=== PATIENT | male | born 2000 | race Caucasian/White ===

== ENCOUNTER → 2019-09-12 16:07 | Outpatient (CLI) | payer OTHER, SELFPAY | PROVIDERS: Visit Provider Nurse Practitioner Family | DX: G47.30 Sleep apnea, unspecified (principal); G47.19 Other hypersomnia; G47.00 Insomnia, unspecified; R06.83 Snoring; R53.83 Other fatigue; E66.9 Obesity, unspecified | CPT/HCPCS: 95806 ==

== ENCOUNTER → 2019-10-30 20:15 | Outpatient (CLI) | payer OTHER, SELFPAY | PROVIDERS: PCP Nurse Practitioner Family; Visit Provider Nurse Practitioner Family | DX: G47.33 Obstructive sleep apnea (adult) (pediatric) (principal); G47.00 Insomnia, unspecified; R40.0 Somnolence; R06.83 Snoring; E66.9 Obesity, unspecified | CPT/HCPCS: 95810 ==

== ENCOUNTER 2020-05-03 13:24 | Emergency (ER) | payer OTHER, SELFPAY ==
[2020-05-03 13:39] VITALS: BP 191/99; PULSE 85; RESP 16; TEMP 37; O2SAT 99; BMI 47.5
--- NOTE | 2020-05-03 13:55 | HMH.EDUTC ---
[facility] – [place] Disposition Clinical Impression: COVID-19 virus test result unknown Disposition: Home, Self-Care Condition on Discharge: Good Instructions: Preventing the Spread of Coronavirus Discharge Instructions Additional Instructions: self quarantine until results known Referrals: Emerson Joaquin APRN [Primary Care Provider] - Time of Disposition: 14:04 Medical Decision Making - Deng Inquiry Pt receiving controlled substance: No Vital Signs: 05/03/20 13:39 Temperature 98.6 F Temperature Source Oral Pulse Rate [Radial] 85 Respiratory Rate 16 Blood Pressure [Right Arm] 191/99 H Blood Pressure Mean [Right Arm] 129 Blood Pressure Source [Right Arm] Automatic Cuff Blood Pressure Position [Right Arm] Sitting 02 Sat by Pulse Oximetry 99 Oxygen Delivery Method Room Air [facility] – [place] HPI - General Chief complaint: Urgent Treatment Center Stated complaint: wants to be tested COVID Time Seen by Provider: 05/03/20 13:55 Mode of Arrival: Ambulatory Source of Information: Patient Limitations: No Limitations Description of Symptoms (Recalled from Triage Doc. by RN): 19 yr old male presents for covid testing. pt states he has no symptoms but was exposed by sister, CAITIE Symptoms (Recalled from RN notes): No Resp Symptoms (Recalled from RN notes): No Skin Symptoms (Recalled from RN notes): No MS Symptoms (Recalled from RN notes): No Functional Status (Recalled from RN notes): wnl - Related Data Previous Rx's Medication Instructions Recorded cephALEXin [Keflex 500mg Cap] 500 mg PO TID #30 cap 12/15/19 buspirone 10 mg tablet 10 mg PO BID #60 tab 04/14/20 fluoxetine 20 mg capsule 20 mg PO DAILY #30 cap 04/14/20 Allergies Allergy/AdvReac Type Severity Reaction Status Date / Time No Known Allergies Allergy Verified 11/23/19 12:38 - Worker's Comp Is this a Worker's Comp case?: No [facility] History - Hepatitis A Screen Drug use history?: No High risk sexual behaviors?: No History of sexually transmitted infection?: No Currently employed?: No Childcare worker?: No Do you have indoor plumbing?: Yes Do you have electricity?: Yes Attestation statement:: This patient has been screened for Hepatitis A risk factors. I have reviewed the patient's past medical history: Yes Medical History: Reports:: Anxiety, Depression Denies:: Diabetes Mellitus Type 1, Diabetes Mellitus Type 2 Comment: Depression Laterality Cases: Bilateral: Tonsillectomy Other Surgeries: Yes: No Previous Surgery Amputation: No Fractures: No - Social History Smoking Status: Current every day smoker Tobacco Type: cigarettes # Packs/Day (cigarettes): 1 Alcohol Intake: never Substance Use Type: denies use Occupational Status: employed - Psychiatric History Pschychiatric History:: Reports:: Anxiety, Depression Family Hx:: No significant family history ROS Obtained: Yes Systems reviewed as appropriate & no additional complaints - Constitutional Constitutional: Reports system reviewed and no additional complaints, except as docu, Denies chills, Denies fever(s) - Eyes Eyes: Reports system reviewed and no additional complaints, except as docu, Denies dry eyes - ENT Ears, Nose, Mouth, and Throat: Reports system reviewed and no additional complaints, except as docu, Denies sore throat - Cardiovascular Cardiovascular: Reports system reviewed and no additional complaints, except as docu, Denies chest pain - Respiratory Respiratory: Yes system reviewed and no additional complaints, except as docu, No dyspnea on exertion - Gastrointestinal Gastrointestingal: Reports: system reviewed and no additional complaints, except as docu. Denies: nausea, reflux - Genitourinary Male Genitourinary: Reports system reviewed and no additional complaints, except as docu - Musculoskeletal Musculoskeletal: Reports system reviewed and no additional complaints, except as docu, Denies decreased muscle mass - Integumentary/Breasts Skin/Breast: Reports system
[2020-05-03 14:17] VITALS: BP 190/90; PULSE 85; RESP 16; TEMP 37; O2SAT 99
== END 2020-05-03 14:18 | disposition home or self-care (01) ==
PROVIDERS: Emergency Provider Nurse Practitioner Family; PCP Nurse Practitioner Family
DX: Z20.828 Contact with and (suspected) exposure to other viral communicable diseases (principal); F41.8 Other specified anxiety disorders; F17.210 Nicotine dependence, cigarettes, uncomplicated; Z90.09 Acquired absence of other part of head and neck
CPT/HCPCS: 99201; U0003

== ENCOUNTER 2020-08-11 18:41 | Emergency (ER) | payer OTHER, SELFPAY ==
[2020-08-11 18:42] VITALS: BP 123/72; PULSE 60; RESP 16; TEMP 37.2; O2SAT 98; BMI 33.0
--- NOTE | 2020-08-11 19:37 | CT_ITS ---
PROCEDURE: CT HEAD/BRAIN WO CON CLINICAL INDICATION: hit back of head on cabinet Head injury with headache/pain, contusion, abrasion or hematoma in COMPARISON: CT HDWO CT HEAD WITHOUT CONTRAST from 06/17/2011 TECHNIQUE: Axial images obtained. All CT scans at the facility use one or more dose reduction, viz: automated exposure control, ma/kV adjustment per patient size (including targeted exams where dose is matched to indication, i.e. head), or iterative reconstruction technique. FINDINGS: No midline shift, mass effect, intracranial hemorrhage, hydrocephalus, or extra-axial fluid collection is evident. The calvarium has an unremarkable appearance. No mastoid effusion. No sinus air-fluid level. IMPRESSION: No acute intracranial finding Dictated by: Alf Breen MD 08/12/2020 06:34 Alf Breen MD in [place] 08/12/2020 06:35
--- NOTE | 2020-08-11 19:37 | CT_ITS ---
PROCEDURE: CT CERVICAL SPINE WO CON CLINICAL INDICATION: hit back of head on cabinet Neck injury with pain, contusion/abrasion or hematoma, cervical sprain/strain the COMPARISON: No exams were available for comparison TECHNIQUE: Axial images obtained with sagittal and coronal reformats. All CT scans at the facility use one or more dose reduction, viz: automated exposure control, ma/kV adjustment per patient size (including targeted exams where dose is matched to indication, i.e. head), or iterative reconstruction technique. Axial spiral CT scanning performed of the cervical spine beginning at the base of the skull and continuing to the upper T-spine. 3-D multiplanar reconstruction with 3-D manipulation of volumetric data set in image rendering was completed by the radiologist and/or technologist with the supervision of the radiologist on independent workstation. FINDINGS: Reversal cervical lordosis which may be related to patient positioning or muscle spasm. No acute fracture. There is discontinuity of the styloid process on the right. Series 602, image 15 possibly due to anatomic variant. Scattered small nodes are present in the neck on both sides. Lung apices are clear. There is mild prominence of the palatine tonsils. IMPRESSION: 1. Reversal cervical lordosis which could be due to patient positioning or muscle spasm. No acute fracture. 2. Discontinuity of the styloid process on the right which may be a normal variant. Cannot exclude a fracture. Please correlate as the patient's area of pain and tenderness. Dictated by: Alf Breen MD 08/12/2020 06:40 Alf Breen MD in [place] 08/12/2020 06:40
--- NOTE | 2020-08-11 20:35 | HMH.EDHA ---
ED Disposition Clinical Impression: Concussion without loss of consciousness Qualifiers: Encounter type: initial encounter Qualified Code(s): S06.0X0A - Concussion without loss of consciousness, initial encounter Head contusion Qualifiers: Encounter type: initial encounter Contusion of head detail: unspecified part of head Qualified Code(s): S00.93XA - Contusion of unspecified part of head, initial encounter Disposition: Home, Self-Care Condition on Discharge: Good Instructions: DI for Concussion Additional Instructions: advil and tyenol and workman comp form completed Referrals: Emerson Joaquin APRN [Primary Care Provider] - - Critical Care Critical Care Time: No Attestation: On 08/11/20, the high probability of a clinically significant, sudden or life threatening deterioration of the following system(s) required my full and direct attention, intervention and personal management. The time I documented below is in addition to time spent performing reported procedures but includes the following listed in this critical care notation. Medical Decision Making - Medical Records Medical records reviewed: Yes: I reviewed the patient's medical records. - Deng Inquiry Pt receiving controlled substance: No Vital Signs: 08/11/20 18:42 Temperature 98.9 F Temperature Source Oral Pulse Rate [Radial] 60 Respiratory Rate 16 Blood Pressure [Right Radial Artery] 123/72 Blood Pressure Mean [Right Radial Artery] 89 Blood Pressure Position [Right Radial Artery] Sitting 02 Sat by Pulse Oximetry 98 Oxygen Delivery Method Room Air Orders (Tests/Meds): ORDERS Category Date Time Status CT cervical spine wo con Stat Cat Scan 08/11/20 19:[address] head/brain wo con Stat Cat Scan 08/11/20 19:37 Taken - CT Data CT Scan: Head, C-Spine Time Received: 20:[address] Reviewed: Yes: I have viewed the radiologist's interpretation Preliminary Findings: No Fracture Seen Headache HPI - General Chief Complaint: Head Injury Stated Complaint: WC 1114@2030 hit hit,dizzy Time Seen by Provider: 08/11/20 20:20 Mode of Arrival: Ambulatory Source of Information: Patient, Medical Record Limitations: No Limitations Description of Symptoms (Recalled from ER Triage Doc. by RN): TO ED PER [facility] CAR WITH C/O DIZZINESS STATES TUESDAY AT WORK HE WAS BENDING OVER STOOD UP AND HIT BACK OF HEAD ON THE EDGE OF DESK DENIES ANY LOC, NAUSEA, VOMITING - History of Present Illness MD Complaint: headache Onset (ago): day(s) Onset description: other (after trauma ) Location: diffuse Severity: moderate Quality: aching Context: recent head injury Associated symptoms: none Treatments prior to arrival: none - Related Data Previous Rx's Medication Instructions Recorded cephALEXin [Keflex 500mg Cap] 500 mg PO TID #30 cap 12/15/19 buspirone 10 mg tablet 10 mg PO BID #60 tab 07/10/20 fluoxetine 20 mg capsule 20 mg PO DAILY #30 cap 07/10/20 Allergies Allergy/AdvReac Type Severity Reaction Status Date / Time No Known Allergies Allergy Verified 11/23/19 12:38 [facility] History - Hepatitis A Screen Drug use history?: No High risk sexual behaviors?: No History of sexually transmitted infection?: No Currently employed?: No Childcare worker?: No Do you have indoor plumbing?: Yes Do you have electricity?: Yes Attestation statement:: This patient has been screened for Hepatitis A risk factors. I have reviewed the patient's past medical history: Yes Medical History: Reports:: Anxiety, Depression Denies:: Diabetes Mellitus Type 1, Diabetes Mellitus Type 2 Comment: Depression/anxiety with suicidal idealization Laterality Cases: Bilateral: Tonsillectomy Other Surgeries: Yes: No Previous Surgery Amputation: No Fractures: No - Social History Smoking Status: Never smoker Alcohol Intake: never Alcohol Intake Frequency:: 0-2 drinks per day Substance Use Type: denies use Occupational Status: employed - Psychiatric History [facility]
[2020-08-11 20:49] VITALS: BP 140/75; PULSE 76; RESP 16; TEMP 36.8; O2SAT 98
== END 2020-08-11 20:52 | disposition home or self-care (01) ==
PROVIDERS: Emergency Provider Emergency Medicine; PCP Nurse Practitioner Family
DX: S06.0X0A Concussion without loss of consciousness, initial encounter (principal); W22.03XA Walked into furniture, initial encounter; Y92.69 Other specified industrial and construction area as the place of occurrence of the external cause; Y99.0 Civilian activity done for income or pay; F41.8 Other specified anxiety disorders
CPT/HCPCS: 70450; 72125; 99282

== ENCOUNTER 2021-02-10 09:09 | Emergency (ER) | payer OTHER, SELFPAY ==
[2021-02-10 09:10] VITALS: BP 126/61; PULSE 58; RESP 17; TEMP 36.8; O2SAT 97; BMI 34.7
[2021-02-10 09:26] VITALS: BP 126/61; PULSE 58; RESP 17; TEMP 36.8; O2SAT 97
--- NOTE | 2021-02-10 09:28 | HMH.EDUTC ---
[facility] [place] Clinical Impression: Left ear impacted cerumen Disposition: Home, Self-Care Condition on Discharge: Good Instructions: DI for Cerumen Impaction, Cerumen Impaction, How to Use Ear Drops Additional Instructions: Use the drops as directed. Follow up with your regular doctor. GO TO THE ER FOR ANY WORSENING SYMPTOMS OR CONCERNS Prescriptions: Neomycin/Polymyxin B Sulf/Hc [Vsssivdx-Nllpdywcz-ZV Otic Susp 10mL] 3 drops EAR-LEFT TID 7 Days #1 bottle Transmission Status: Received by [facility] #[id number] Referrals: Emerson Joaquin APRN [Primary Care Provider] - Time of Disposition: 09:56 Medical Decision Making - Medical Records Medical records reviewed: No: I reviewed the patient's medical records. - Deng Inquiry Pt receiving controlled substance: No Vital Signs: 02/10/21 09:10 02/10/21 09:26 Temperature 98.2 F 98.2 F Temperature Source Oral Pulse Rate 58 L Pulse Rate [Left] 58 L Respiratory Rate 17 17 Blood Pressure 126/61 Blood Pressure [Right Arm] 126/61 Blood Pressure Mean [Right Arm] 82 02 Sat by Pulse Oximetry 97 [facility] [place] - General Stated complaint: left ear stopped up Time Seen by Provider: 02/10/21 09:28 Mode of Arrival: Ambulatory Source of Information: Patient Limitations: No Limitations Description of Symptoms (Recalled from Triage Doc. by RN): Pt states he is having hearing loss after using a qtip in his left ear 2 days ago. Pt states he feels like he has swelling behind his ears and chin. HEENT Symptoms (Recalled from RN notes): Yes Resp Symptoms (Recalled from RN notes): No Skin Symptoms (Recalled from RN notes): No MS Symptoms (Recalled from RN notes): No Functional Status (Recalled from RN notes): wnl - History of Present Illness Provider Complaint: He states that over the past several days he has had decreased hearing in his left ear. He has a history of getting cerumen impactions. He denies any fever, chills, or feeling bad. - Related Data Previous Rx's Medication Instructions Recorded Neomycin/Polymyxin B Sulf/Hc 3 drops EAR-LEFT TID 7 Days #1 02/10/21 [Oggtdcst-Clzqlujqf-LT Otic Susp bottle 10mL] buspirone 10 mg tablet 10 mg PO BID #60 tab 02/10/21 venlafaxine 75 mg capsule,extended 75 mg PO DAILY #30 cap 02/10/21 release 24 hr Allergies Allergy/AdvReac Type Severity Reaction Status Date / Time No Known Allergies Allergy Verified 02/10/21 09:25 - Worker's Comp Is this a Worker's Comp case?: No [facility] History - Hepatitis A Screen Drug use history?: No High risk sexual behaviors?: No History of sexually transmitted infection?: No Currently employed?: No Childcare worker?: No Do you have indoor plumbing?: Yes Do you have electricity?: Yes Attestation statement:: This patient has been screened for Hepatitis A risk factors. I have reviewed the patient's past medical history: Yes Medical History: Reports:: Anxiety, Depression Denies:: Diabetes Mellitus Type 1, Diabetes Mellitus Type 2 Comment: Depression/anxiety with suicidal idealization Laterality Cases: Bilateral: Tonsillectomy Other Surgeries: Yes: No Previous Surgery Amputation: No Fractures: No - Social History Smoking Status: Never smoker Alcohol Intake: never Alcohol Intake Frequency:: 0-2 drinks per day Substance Use Type: denies use Occupational Status: other - Psychiatric History Pschychiatric History:: Reports:: Anxiety, Depression Family Hx:: No significant family history ROS Obtained: Yes All systems reviewed & no additional complaints - Constitutional Constitutional: Denies chills, Denies fever(s) - ENT Ears, Nose, Mouth, and Throat: Reports otalgia - Cardiovascular Cardiovascular: Denies chest pain - Respiratory Respiratory: Denies chest congestion, Denies cough Physical Exam - General General appearance: alert, in no apparent distress - Head Head exam: atraumatic, normocephalic, normal inspection - Eye Eye exam: Pr
== END 2021-02-10 10:01 | disposition home or self-care (01) ==
PROVIDERS: Emergency Provider Nurse Practitioner Family; PCP Nurse Practitioner Family
DX: H61.22 Impacted cerumen, left ear (principal); F41.8 Other specified anxiety disorders
CPT/HCPCS: 99202; G0463

== ENCOUNTER → 2021-02-20 13:31 | Outpatient (CLI) | payer OTHER, SELFPAY ==
[2021-02-20 13:51] LABS: Basophils % 0.3 % (0.1-2.0); Eosinophils # 0.1 K/mm3 (0.0-0.4); Eosinophils % 2.4 % (0.1-12.0); Hemoglobin 14.4 g/dL (14.1-18.0); Lymphocytes # 2.1 K/mm3 (0.7-4.5); Lymphocytes % 37.6 % (10-50); Mean Corpuscular HGB Conc 32.8 g/dL (31.8-35.4); Mean Corpuscular Hemoglobin 28.5 pg (27.0-31.2); Mean Corpuscular Volume 86.9 fl (80-94); Mean Platelet Volume 7.4 fl (7.4-10.4); Monocytes # 0.4 K/mm3 (0.1-1.0); Monocytes % 7.1 % (1.7-9.3); Neutrophils # 2.9 K/mm3 (1.8-7.8); Neutrophils % 52.6 % (37.0-80.0); Platelet Count 227 K/mm3 (142-424); Red Blood Count 5.07 M/mm3 (4.60-6.20); Red Cell Distribution Width 12.6 % (11.5-17.5); White Blood Count 5.6 K/mm3 (4.8-10.8)
[2021-02-20 14:33] LABS: Chloride 104 mmol/L (98-107); Potassium 4.7 mmoL/L (3.5-5.1); Sodium 142 mmol/L (136-145)
[2021-02-20 14:36] LABS: Alanine Aminotransferase 26 U/L (12-78); Albumin Level 4.7 g/dl (3.5-5.0); Albumin/Globulin Ratio 1.7 (1.1-1.8); Alkaline Phosphatase 61 U/L (38-126); Anion Gap 12.7 mEq/L (5-15); Aspartate Amino Transferase 27 U/L (17-59); Bilirubin,Total 1.1 mg/dl (0.2-1.3); Blood Urea Nitrogen 12 mg/dl (9-20); Calcium 9.2 mg/dl (8.4-10.2); Carbon Dioxide 30 mmol/L (22.0-30.0); Estimated Glomerular Filt Rate 94 ml/min (>60); GFR (African American) 114 ML/MIN (>60); Globulin 2.7 g/dL (1.3-3.2); Glucose 85 mg/dl (74-100); Total Protein,Serum 7.4 g/dl (6.3-8.2)
[2021-02-20 14:49] LABS: Intact Parathyroid Hormone 31.3 pg/mL (7.5-53.5)
[2021-02-20 14:53] LABS: T4 (Thyroxine) 11.2 ug/dl (5.53-11.0)
[2021-02-20 15:07] LABS: Thyroid Stimulating Hormone 1.42 uIU/mL (0.465-4.68)
[2021-02-22 09:54] LABS: Prolactin 11.8 ng/mL (4.0-15.2)
[2021-02-24 16:11] LABS: Calcium, Ionized 5.3 mg/dL (4.5-5.6)
== END ==
PROVIDERS: Visit Provider Nurse Practitioner Family
DX: S21.0 Open wound of breast (principal); N64.52 Nipple discharge; H93.90 Unspecified disorder of ear, unspecified ear; Z79.899 Other long term (current) drug therapy
CPT/HCPCS: 80053; 82330; 83970; 84146; 84436; 84443; 85025

== ENCOUNTER → 2021-03-30 11:14 | Outpatient (CLI) | payer OTHER, SELFPAY ==
--- NOTE | 2021-03-30 11:20 | MR_ITS ---
PROCEDURE: MR HEAD/BRAIN WO CON CLINICAL INDICATION: Chronic nipple discharge COMPARISON: No exams were available for comparison TECHNIQUE: Routine multiplanar multi echo sequences are performed without gadolinium enhancement. FINDINGS: No midline shift, mass effect, intracranial hemorrhage, or hydrocephalus is evident. The cerebellopontine angles, cerebellum, brainstem, and mid brain have an unremarkable appearance. There is a tiny T2 white matter hyperintensity in the left parietal lobe nonspecific measuring approximately 2 mm. The optic chiasm, corpus callosum, and craniocervical junction are unremarkable. The pituitary stalk is slightly deviated toward the left. There is a subtle area of decreased T2 signal in the left aspect of the pituitary as seen on series 8, image 12. This area measures approximately 3-4 mm and may be due to artifact. Dedicated pituitary exam without and with gadolinium enhancement suggested for further evaluation. There are small bilateral maxillary sinus retention cyst. Increased T2 signal noted within the mastoid sinus on the left. IMPRESSION: 1. No acute intracranial findings. 2. Possible small left-sided pituitary lesion. MRI of the pituitary without and with gadolinium enhancement may confirm. 3. Left mastoid sinus disease Dictated by: Alf Breen MD 03/31/2021 09:22 Alf Breen MD in [place] 03/31/2021 09:22
== END ==
PROVIDERS: PCP Nurse Practitioner Family; Visit Provider Nurse Practitioner Family
DX: N64.52 Nipple discharge (principal)
CPT/HCPCS: 70551

== ENCOUNTER → 2021-04-10 13:44 | Outpatient (CLI) | payer OTHER, SELFPAY ==
--- NOTE | 2021-04-10 13:48 | US_ITS ---
PROCEDURE: MM DIG MAMM BI DX W/CAD Digital Breast Tomosynthesis Included CLINICAL INDICATION: nipple discharge COMPARISON: US US BREAST LT COMPLETE from 04/10/2021 US US BREAST RT COMPLETE from 04/10/2021 TECHNIQUE: Standard CC and MLO images and 3D Tomosynthesis was obtained. R2 CAD reviewed. FINDINGS: Increased density is present in the retroareolar region bilaterally consistent with gynecomastia. There is a small nodular lesion along the tip of the left nipple measuring approximately 2 mm. Please correlate with direct visualization and physical exam. No abnormal calcification in this region. No nipple retraction. Benign-appearing right breast calcification. Right breast ultrasound: No cyst or mass evident. Increased retroareolar glandular tissue consistent with gynecomastia Left breast ultrasound: No cyst or mass evident. Increased retroareolar glandular tissue consistent with gynecomastia IMPRESSION: No mammographic evidence of malignancy. There is bilateral gynecomastia. There is suggestion of a small nodule at the tip of the nipple on the left. Please correlate with clinical findings. BI-RAD Category: 2 Benign Finding FOLLOW-UP: Please correlate with physical exam regarding possible nodule on the left nipple (A letter has been sent to the patient regarding results of the study.) Dictated by: Alf Breen MD 04/11/2021 10:38 Alf Breen MD in [place] 04/11/2021 10:38
== END ==
PROVIDERS: PCP Nurse Practitioner Family; Visit Provider Nurse Practitioner Family
DX: N64.52 Nipple discharge (principal); N63.0 Unspecified lump in unspecified breast
CPT/HCPCS: 76641; 77062; 77066; G0279

== ENCOUNTER → 2021-05-11 08:50 | Outpatient (CLI) | payer OTHER, SELFPAY ==
--- NOTE | 2021-05-11 08:50 | MR_ITS ---
PROCEDURE: MR HEAD/BRAIN WO/W CON CLINICAL INDICATION: Abnormal finding on pituitary gland Possible pituitary adenoma. COMPARISON: CT CT HEAD/BRAIN WO CON from 08/11/2020 MR MR HEAD/BRAIN WO CON from 03/30/2021 TECHNIQUE: Routine multiplanar multi echo sequences are performed without and with gadolinium enhancement. Thin-section pre and dynamic post enhanced images obtained of the pituitary. FINDINGS: No midline shift, mass effect, intracranial hemorrhage, or hydrocephalus. No restricted diffusion. The cerebellopontine angles, cerebellum, and brainstem have an unremarkable appearance. The small T2 hyperintensity is present in the left parietal lobe nonspecific measuring 3 mm unchanged. No enhancing lesions are evident. Thin-section coronal pre and post enhanced images are obtained of the pituitary fossa. No pituitary lesion is identified. There is homogeneous enhancement. The pituitary stalk is slightly deviated toward the left inferiorly but no lesion is identified in the pituitary. There are small bilateral maxillary retention cysts. IMPRESSION: No evidence of pituitary lesion. Previously noted abnormality in the pituitary is felt to been due to an artifact. There is homogeneous pituitary enhancement. The stalk is slightly deviated toward the left inferiorly but is felt to be due to an incidental finding and not due to a space-occupying pituitary lesion. Dictated by: Alf Breen MD 05/12/2021 05:49 Alf Breen MD in [place] 05/12/2021 05:49
== END ==
PROVIDERS: PCP Nurse Practitioner Family; Visit Provider Specialist
DX: N64.3 Galactorrhea not associated with childbirth (principal); R90.89 Other abnormal findings on diagnostic imaging of central nervous system
CPT/HCPCS: 70553; A9576

== ENCOUNTER 2021-10-17 10:51 | Emergency (ER) | payer OTHER, SELFPAY ==
--- NOTE | 2021-10-17 12:33 | HMH.EDUTC ---
[facility] – [place] Disposition Clinical Impression: Abdominal bloating Disposition: Still a Patient Condition on Discharge: Good Referrals: Emerson Joaquin APRN [Primary Care Provider] - Time of Disposition: 12:37 Medical Decision Making - Degn Inquiry Pt receiving controlled substance: No Orders (Tests/Meds): ORDERS Category Date Time Status XR KUB Stat Exams 10/17/21 12:14 Stop Req [facility] [place] HPI - General Chief complaint: Urgent Treatment Center Stated complaint: bloating, painful burps Time Seen by Provider: 10/17/21 12:33 Mode of Arrival: Ambulatory Source of Information: Patient Limitations: No Limitations - History of Present Illness Provider Complaint: 21 yr old male presents for abd bloating, burping constant, no bm for 5 days, stool prior was dark and had blood in it. pt states he has taken pepto and gas x but the gas x made it worse. pt denies fever. - Related Data Previous Rx's Medication Instructions Recorded venlafaxine 75 mg capsule,extended 75 mg PO DAILY #30 cap 08/10/21 release 24 hr Allergies Allergy/AdvReac Type Severity Reaction Status Date / Time No Known Allergies Allergy Verified 08/10/21 09:51 [facility] History - Hepatitis A Screen Attestation statement:: This patient has been screened for Hepatitis A risk factors. I have reviewed the patient's past medical history: Yes Medical History: Reports:: Anxiety, Depression Denies:: Diabetes Mellitus Type 1, Diabetes Mellitus Type 2 Comment: Depression/anxiety with suicidal idealization Laterality Cases: Bilateral: Tonsillectomy Other Surgeries: Yes: No Previous Surgery, Other Amputation: No Fractures: No - Social History Smoking Status: Never smoker Alcohol Intake: never Alcohol Intake Frequency:: other Substance Use Type: denies use Occupational Status: employed Housing: house Household Members: family - Psychiatric History Pschychiatric History:: Reports:: Anxiety, Depression Family Hx:: Diabetes, Stroke ROS Obtained: Yes Systems reviewed as appropriate & no additional complaints - Constitutional Constitutional: Reports system reviewed and no additional complaints, except as docu, Denies chills, Denies fatigue, Reports poor appetite - Eyes Eyes: Reports system reviewed and no additional complaints, except as docu, Denies blurry vision - ENT Ears, Nose, Mouth, and Throat: Reports system reviewed and no additional complaints, except as docu, Denies sore throat - Cardiovascular Cardiovascular: Reports system reviewed and no additional complaints, except as docu, Denies chest pain - Respiratory Respiratory: Reports system reviewed and no additional complaints, except as docu, Denies cough - Gastrointestinal Gastrointestingal: Reports: system reviewed and no additional complaints, except as docu, abdominal pain, belching, bloating, change in bowel habits - Genitourinary Female Genitourinary: Reports system reviewed and no additional complaints, except as docu - Musculoskeletal Musculoskeletal: Reports system reviewed and no additional complaints, except as docu, Denies joint pain - Integumentary/Breasts Skin/Breast: Reports system reviewed and no additional complaints, except as docu, Denies rash - Neurologic Neurologic: Reports system reviewed and no additional complaints, except as docu, Denies dizziness - Endocrine Endocrine: Reports system reviewed and no additional complaints, except as docu, Denies fatigue - Hematologic/Lymphatic Henatologic/Lymphatic: Reports system reviewed and no additional complaints, except as docu, Denies lymphadenopathy - Allergic/Immunologic Allergic/Immunologic: Reports system reviewed and no additional complaints, except as docu, Denies itchy eyes Physical Exam - General General appearance: alert, in no apparent distress - Head Head exam: atraumatic, normocephalic, normal inspection - Eye Eye exam: Present: normal appearance, PERRL - ENT ENT exam: Present:
[2021-10-17 12:49] VITALS: BP 113/76; PULSE 81; RESP 18; TEMP 37; O2SAT 100; BMI 34.4
--- NOTE | 2021-10-17 12:54 | HMH.ITSTN ---
cancelled by ut
[2021-10-17 12:56] VITALS: BP 127/45; PULSE 75; O2SAT 98
[2021-10-17 13:00] VITALS: BP 122/53; PULSE 70; RESP 18; O2SAT 99; BMI 34.3
--- NOTE | 2021-10-17 13:32 | CT_ITS ---
PROCEDURE INFORMATION: Exam: CT Abdomen And Pelvis With Contrast Exam date and time: 10/17/2021 1:32 PM Age: 21 years old Clinical indication: Bloating and constipation; Additional info: Abd pain, no bm in 5 days TECHNIQUE: Imaging protocol: Computed tomography of the abdomen and pelvis with contrast. Radiation optimization: All CT scans at this facility use at least one of these dose optimization techniques: automated exposure control; mA and/or kV adjustment per patient size (includes targeted exams where dose is matched to clinical indication); or iterative reconstruction. Contrast material: ISOVUE; Contrast volume: 75 ml; Contrast route: IV; COMPARISON: No relevant prior studies available. FINDINGS: Pleural spaces: No acute airspace or pleural disease. Liver: Fatty infiltration of the liver. Gallbladder and bile ducts: Unremarkable gallbladder. Pancreas: No pancreatic mass or ductal dilatation. Spleen: Enlarged spleen measuring 12.9 cm in length. Adrenal glands: Unremarkable adrenals. Kidneys and ureters: Normal renal morphology. No hydronephrosis. Stomach and bowel: Mild small bowel dilatation without a transition zone. Mild wall thickening in the nondistended rectum. Prominent stool, consistent with the reported history of constipation. Diverticula, without pericolonic inflammation. Appendix: No acute appendicitis. Intraperitoneal space: No significant free fluid. Vasculature: Normal caliber of the abdominal aorta. Lymph nodes: Subcentimeter lymph nodes. Urinary bladder: Normal bladder morphology. Reproductive: Unremarkable as visualized. Bones/joints: Transitional vertebra at the lumbosacral junction. Schmorl's nodes. Soft tissues: Small fat containing left inguinal hernia. Infiltration of subcutaneous fat about the umbilicus. IMPRESSION: 1. Prominent stool, consistent with the reported history of constipation. 2. Additional findings as described above.
--- NOTE | 2021-10-17 13:33 | HMH.EDGENADL ---
ED Disposition Clinical Impression: Abdominal bloating, Constipation, Left inguinal hernia Disposition: Home, Self-Care Condition on Discharge: Good Referrals: Emerson Joaquin APRN [Primary Care Provider] - - Critical Care Critical Care Time: No Attestation: On 10/17/21, the high probability of a clinically significant, sudden or life threatening deterioration of the following system(s) required my full and direct attention, intervention and personal management. The time I documented below is in addition to time spent performing reported procedures but includes the following listed in this critical care notation. Medical Decision Making - Deng Inquiry Pt receiving controlled substance: No Vital Signs: 10/17/21 12:49 10/17/21 12:56 10/17/21 13:00 Temperature 98.6 F Temperature Source Oral Pulse Rate [Left] 81 75 70 Respiratory Rate 18 18 Blood Pressure [Right Arm] 113/76 127/45 L 122/53 L Blood Pressure Mean [Right Arm] 88 72 76 02 Sat by Pulse Oximetry 100 98 99 Oxygen Delivery Method Room Air Room Air - Lab Data Lab Results 10/17/21 13:40: WBC 7.2, RBC 5.17, Hgb 15.1, Hct 46.6, MCV 90.1, MCH 29.2, MCHC 32.5, RDW 13.5, Plt Count 260, MPV 6.9 L, Neut % (Auto) 60.9, Lymph % (Auto) 27.2, Powell % (Auto) 5.1, Eos % (Auto) 5.7, Baso % (Auto) 1.1, Neut # (Auto) 4.4, Lymph # (Auto) 2.0, Powell # (Auto) 0.4, Eos # (Auto) 0.4, Baso # (Auto) 0.1 10/17/21 13:40: Sodium 138, Potassium 4.7, Chloride 102, Carbon Dioxide 31 H, Anion Gap 9.7, BUN 10, Creatinine 0.80, Estimated Creat Clear 223, Estimated GFR 121, Est GFR ( Amer) 146, Glucose 86, Calcium 9.0, Total Bilirubin 1.3, AST 46, ALT 46, Alkaline Phosphatase 53, Total Protein 7.5, Albumin 4.6, Globulin 2.9, Albumin/Globulin Ratio 1.6, Lipase 253 Result diagrams: 10/17/21 13:40 10/17/21 13:40 Orders (Tests/Meds): ED MEDICATIONS Discontinued Medications Generic Name Dose Route Start Last Admin Trade Name Diann PRN Reason Stop Dose Admin Iopamidol 75 ml 10/17/21 14:21 10/17/21 14:22 Iopamidol-370 (76%);100ml Bottle IV 10/17/21 14:22 75 ml ONCE ONE Administration Ondansetron HCl 4 mg 10/17/21 13:32 10/17/21 13:49 Ondansetron 4mg/2ml Vial IV 10/17/21 13:33 4 mg ONCE ONE Administration Simethicone 80 mg 10/17/21 13:32 10/17/21 13:49 Simethicone 80mg Chewable Tablet PO 10/17/21 13:33 80 mg ONCE ONE Administration Sodium Chloride 10 ml 10/17/21 14:21 10/17/21 14:22 Sodium Chloride 0.9% 10ml Syr (Rad Only) IV 10/17/21 14:22 10 ml ONCE ONE Administration ORDERS Category Date Time Status Lactic Acid Stat Lab 10/17/21 13:32 Ordered Medical Decision Narrative: DDx includes but not limited to constipation, SBO, LBO, ileus, electrolyte abnormality, medication/supplement side effect. HDS, NAD, nonperitonitic abd, with generalized mild ttp worse in RLQ. Labs including cbc, cmp without acute and actionable findings. CT A/P w/ contrast shows small diverticula without diverticulitis, no significant obstruction, prominent stool burden, small left inguinal hernia. Remains HDS, well appearing, NAD. Pain minimal on reassessment. He wants to get otc laxatives and supplemental fiber on his own, does not want prescription. This seems reasonable. Given ED return precautions. General Adult HPI - General Chief complaint: [facility] Stated complaint: bloating, painful burps Time Seen by Provider: 10/17/21 12:33 Mode of Arrival: Ambulatory Source of Information: Patient Limitations: No Limitations Description of Symptoms (Recalled from ER Triage Doc. by RN): pt c/o intesetinal issures, blockage, constant belching, dark bloody stool and no BM for 5 days. - History of Present Illness HPI narrative: 21 yo male presents for evaluation of constipation. Patient reports he has not had BM in 5 days. Last BM had dark red blood in it. States he was taking MV with iron in it which has caused bloody BM in pas
[2021-10-17 13:53] LABS: Chloride 102 mmol/L (98-107); Potassium 4.7 mmoL/L (3.5-5.1); Sodium 138 mmol/L (136-145)
[2021-10-17 13:55] LABS: Alanine Aminotransferase 46 U/L (12-78); Aspartate Amino Transferase 46 U/L (17-59); Blood Urea Nitrogen 10 mg/dl (9-20); Creatinine Clearance Estimated 223 mL/min (50-200); Estimated Glomerular Filt Rate 121 ml/min (>60); GFR (African American) 146 ML/MIN (>60)
[2021-10-17 13:56] LABS: Albumin Level 4.6 g/dl (3.5-5.0); Albumin/Globulin Ratio 1.6 (1.1-1.8); Alkaline Phosphatase 53 U/L (38-126); Anion Gap 9.7 mEq/L (5-15); Bilirubin,Total 1.3 mg/dl (0.2-1.3); Carbon Dioxide 31 mmol/L (22.0-30.0); Globulin 2.9 g/dL (1.3-3.2); Glucose 86 mg/dl (74-100); Lipase 253 U/L (23-300); Total Protein,Serum 7.5 g/dl (6.3-8.2)
[2021-10-17 13:59] LABS: Basophils # 0.1 K/mm3 (0-0.2); Basophils % 1.1 % (0.1-2.0); Eosinophils # 0.4 K/mm3 (0.0-0.4); Eosinophils % 5.7 % (0.1-12.0); Hematocrit 46.6 % (42.0-52.0); Hemoglobin 15.1 g/dL (14.1-18.0); Lymphocytes % 27.2 % (10-50); Mean Corpuscular HGB Conc 32.5 g/dL (31.8-35.4); Mean Corpuscular Hemoglobin 29.2 pg (27.0-31.2); Mean Corpuscular Volume 90.1 fl (80-94); Mean Platelet Volume 6.9 fl (7.4-10.4); Monocytes # 0.4 K/mm3 (0.1-1.0); Monocytes % 5.1 % (1.7-9.3); Neutrophils # 4.4 K/mm3 (1.8-7.8); Neutrophils % 60.9 % (37.0-80.0); Platelet Count 260 K/mm3 (142-424); Red Blood Count 5.17 M/mm3 (4.60-6.20); Red Cell Distribution Width 13.5 % (11.5-17.5); White Blood Count 7.2 K/mm3 (4.8-10.8)
--- NOTE | 2021-10-17 14:07 | PC.NURSE ---
Pt to radiology
--- NOTE | 2021-10-17 14:15 | PC.NURSE ---
pt returned from CT
[2021-10-17 15:21] VITALS: BP 134/54; PULSE 80; RESP 16; TEMP 36.9; O2SAT 98
[2021-10-17 15:26] VITALS: BP 113/64
== END 2021-10-17 15:26 | disposition home or self-care (01) ==
LOC: UTC 12:38 → ER 12:51
PROVIDERS: Emergency Provider Student in an Organized Health Care Education/Training Program; PCP Nurse Practitioner Family
DX: K59.00 Constipation, unspecified (principal); K40.90 Unilateral inguinal hernia, without obstruction or gangrene, not specified as recurrent; F41.8 Other specified anxiety disorders
CPT/HCPCS: 74177; 80053; 83690; 85025; 96374; 99283; J2405; Q9967

== ENCOUNTER → 2021-10-19 12:06 | Outpatient (CLI) | payer OTHER, SELFPAY | PROVIDERS: Visit Provider Nurse Practitioner | DX: Z20.822 Contact with and (suspected) exposure to COVID-19 (principal) | CPT/HCPCS: C9803; U0003; U0005 ==

== ENCOUNTER 2022-03-15 15:01 | Emergency (ER) | payer OTHER, SELFPAY ==
[2022-03-15 16:30] VITALS: BP 132/74; PULSE 71; RESP 19; TEMP 37.3; O2SAT 97; BMI 34.4
--- NOTE | 2022-03-15 16:43 | HMH.EDUTC ---
[facility] [place] Clinical Impression: Otitis media Qualifiers: Otitis media type: unspecified Laterality: bilateral Qualified Code(s): H66.93 - Otitis media, unspecified, bilateral Otitis externa Qualifiers: Otitis externa type: unspecified type Chronicity: unspecified Laterality: left Qualified Code(s): H60.92 - Unspecified otitis externa, left ear Disposition: Home, Self-Care Condition on Discharge: Good Instructions: Middle Ear Infection, DI for Otitis Externa Additional Instructions: Take medication and use drops in left ear as advised Return if needed Straight to ER if any life threatening symptoms FOllow up with your Family Doctor if symptoms persist Prescriptions: Amoxicillin [Amoxicillin 875MG Tab] 875 mg PO Q12H #20 tab Transmission Status: Pending to Headroom # Neomycin/Polymyxin B Sulf/Hc [Fuuilijg-Jdfinmrff-OD Otic Susp 10mL] 4 drp OT Q8H 7 Days #10 ml Transmission Status: Pending to Headroom # Referrals: Emerson Joaquin APRN [Primary Care Provider] - As needed Time of Disposition: 16:48 Medical Decision Making - Deng Inquiry Pt receiving controlled substance: No Deng was queried for this patient: No Vital Signs: 03/15/22 16:30 Temperature 99.2 F Temperature Source Oral Pulse Rate [Right Brachial] 71 Respiratory Rate 19 Blood Pressure [Right Arm] 132/74 Blood Pressure Mean [Right Arm] 93 Blood Pressure Source [Right Arm] Automatic Cuff Blood Pressure Position [Right Arm] Sitting 02 Sat by Pulse Oximetry 97 Oxygen Delivery Method Room Air [facility] - General Stated complaint: left ear pain Time Seen by Provider: 03/15/22 16:43 Mode of Arrival: Ambulatory Source of Information: Patient Limitations: No Limitations Description of Symptoms (Recalled from Triage Doc. by RN): PATIENT C/O BILATERAL EAR PAIN AND PRESSURE X 1 MONTH HEENT Symptoms (Recalled from RN notes): Yes Resp Symptoms (Recalled from RN notes): No Skin Symptoms (Recalled from RN notes): No MS Symptoms (Recalled from RN notes): No Functional Status (Recalled from RN notes): WNL - History of Present Illness Provider Complaint: Patient states that he has been having pain in his left ear and now having pain in his right States that he feels like his left ear is swollen and hurts at times when he uses his headphones - Related Data Home Medications Medication Instructions Recorded Confirmed buPROPion HCL [Wellbutrin XL] 150 mg PO DAILY 03/15/22 03/15/22 Previous Rx's Medication Instructions Recorded Amoxicillin [Amoxicillin 875MG 875 mg PO Q12H #20 tab 03/15/22 Tab] Neomycin/Polymyxin B Sulf/Hc 4 drp OT Q8H 7 Days #10 ml 03/15/22 [Vxwunllr-Wljahxjud-FE Otic Susp 10mL] Allergies Allergy/AdvReac Type Severity Reaction Status Date / Time No Known Allergies Allergy Verified 12/23/21 10:00 - Worker's Comp Is this a Worker's Comp case?: No [facility] History - Hepatitis A Screen Attestation statement:: This patient has been screened for Hepatitis A risk factors. I have reviewed the patient's past medical history: Yes Medical History: Reports:: Anxiety, Depression Denies:: Diabetes Mellitus Type 1, Diabetes Mellitus Type 2 Comment: Depression/anxiety with suicidal idealization Laterality Cases: Bilateral: Tonsillectomy Other Surgeries: Yes: No Previous Surgery, Other Amputation: No Fractures: No - Social History Smoking Status: Never smoker Alcohol Intake: never Alcohol Intake Frequency:: other Substance Use Type: denies use Occupational Status: employed Housing: house Household Members: family - Psychiatric History Pschychiatric History:: Reports:: Anxiety, Depression Family Hx:: Diabetes, Stroke ROS Obtained: Yes All systems reviewed & no additional complaints, Yes Systems reviewed as appropriate & no additional complaints - Constitutional Constitutional: Reports system reviewed and no additional complaints, except as docu, Denies body ac
[2022-03-15 16:48] VITALS: BP 132/74; PULSE 71; RESP 19; TEMP 37.3; O2SAT 97
== END 2022-03-15 16:51 | disposition home or self-care (01) ==
PROVIDERS: Emergency Provider Nurse Practitioner; PCP Nurse Practitioner Family
DX: H66.93 Otitis media, unspecified, bilateral (principal); H60.92 Unspecified otitis externa, left ear; F32.A Depression, unspecified; F41.9 Anxiety disorder, unspecified; Z80.9 Family history of malignant neoplasm, unspecified; Z83.3 Family history of diabetes mellitus
CPT/HCPCS: 99213; G0463

== ENCOUNTER 2023-01-28 16:54 | Emergency (ER) | payer OTHER, SELFPAY ==
[2023-01-28 17:00] VITALS: BP 114/59; PULSE 55; RESP 22; TEMP 36.8; O2SAT 98; BMI 32.4
--- NOTE | 2023-01-28 17:09 | EXP.UTC ---
Discharge Plan Disposition Patient Disposition: Home, Self-Care Condition: Good Prescriptions Prescriptions: New cyclobenzaprine 10 mg Tablet 10 mg PO BID PRN (Reason: Muscle Spasm) Qty: 20 0RF methylprednisolone 4 mg Tablets,Dose Pack 4 mg PO DIRECTED Qty: 21 0RF No Action chacjjbe-cphzgneku-SO 3.5-10,000-1 mg/mL-unit/mL-% drops,suspension 4 drp OT Q8H 7 Days Qty: 10 5RF Rx Instructions: 4 drops in left ear every 8 hours for 7 days bupropion HCl 75 mg tablet 75 mg PO BID Qty: 60 1RF Rx Instructions: in the am and at bedtime Referrals Follow up/Referrals: Provider,Referral, MD [Primary Care Provider] - See instructions Activity Restrictions/Add. Instructions Additional Instructions/Restrictions: Go home and rest. It would be best if you rested tomorrow too. No heavy lifting. No twisting for the next couple of days. Take the oral medications as directed. The muscle relaxer (cyclobenzaprine--Flexeril) will make you drowsy, so don't drive or operate heavy machinery after taking it. Follow up with your regular doctor. You may need a referral to physical therapy. Your primary care physician would have to see you and order it though. GO TO THE ER FOR ANY WORSENING SYMPTOMS OR CONCERN, ESPECIALLY BOWEL OR BLADDER ISSUES, SADDLE AREA NUMBNESS, FEVER, ETC Clinical Impressions Clinical Impression: Low back pain, Low back strain Stand Alone Forms Stand Alone Forms: Work/School Release Instructions Patient Instructions: Low Back Pain (Alternative Therapy), Low Back Pain, DI for Low Back Pain, Cyclobenzaprine, Methylprednisolone Discharge ED Provider: Kale Hernandez [facility] General Stated complaint: back pain Time Seen by Provider: 01/28/23 17:09 History of Present Illness Provider Complaint: He states that for the past several days he has had low back pain that radiates up to his middle back at times. He denies any falls or known injuries. He does state that he has switched jobs and he is lifting heavy things at this job now. He has been trying various stretching exercises and he does not believe they have helped. Related Data Previous Rx's Medication Instructions Recorded bupropion HCl 75 mg tablet 75 mg PO BID #60 tabs 05/19/22 phgzlvbf-oezcoqbfy-vpufinvgw 3.5 4 drp otic (ear) Q8H 7 days #10 mL 06/04/22 mg-10,000 unit/mL-1 % ear drops,susp cyclobenzaprine 10 mg tablet 10 mg PO BID PRN Muscle Spasm #20 01/28/23 tabs methylprednisolone 4 mg tablets in 4 mg PO DIRECTED #21 tabs 01/28/23 a dose pack Allergies Allergy/AdvReac Type Severity Reaction Status Date / Time No Known Allergies Allergy Verified 06/04/22 14:19 [facility] Disclaimer: The information contained in this section may have been updated after the patient was seen, as this information can be updated by other users. Social History Smoking Status: Never smoker alcohol intake: never substance use type: denies use current occupational status: employed Travel in the last 8 weeks: None household members: family housing: house number of children: 0 ROS Obtained: Yes All systems reviewed & no additional complaints except as documented Constitutional Constitutional: Denies chills and Denies fever(s) Eyes Eyes: Denies eye discharge ENT Ears, Nose, Mouth, and Throat: Denies dizziness, Denies otalgia and Denies sore throat Cardiovascular Cardiovascular: Denies chest pain Respiratory Respiratory: Denies shortness of breath, Denies chest congestion, Denies cough, Denies stridor and Denies wheezing Gastrointestinal Gastrointestingal: Denies nausea or vomiting Musculoskeletal Musculoskeletal: Reports system reviewed and no additional complaints, except as documented and Denies arthralgias Integumentary/Breasts Skin/Breast: Denies rash Neurologic Neurologic: Denies dizziness and Denies paresthesias Allergic/Immunol
[2023-01-28 17:48] VITALS: BP 114/59; PULSE 55; RESP 22; TEMP 36.8; O2SAT 98
== END 2023-01-28 17:51 | disposition home or self-care (01) ==
PROVIDERS: Emergency Provider Nurse Practitioner Family
DX: M54.50 Low back pain, unspecified
CPT/HCPCS: 99212; 99214; G0463

== ENCOUNTER 2023-06-20 16:07 | Emergency (ER) | payer OTHER, SELFPAY ==
[2023-06-20 16:40] VITALS: BP 116/70; PULSE 87; RESP 18; TEMP 37.2; O2SAT 98; BMI 29.0
[2023-06-20 17:07] LABS: UTC Strep Screen (Rapid) Negative (Negative)
--- NOTE | 2023-06-20 17:18 | EXP.UTC ---
Discharge Plan Disposition Patient Disposition: Home, Self-Care Condition: Good Prescriptions Prescriptions: New amoxicillin 875 mg tablet 875 mg PO BID Qty: 20 0RF Referrals Follow up/Referrals: Adeel Pinon APRN [Primary Care Provider] - See instructions Activity Restrictions/Add. Instructions Additional Instructions/Restrictions: *Monitor Temp, Over the counter Motrin or Tylenol as directed/as needed Tylenol every 4 hours and Motrin every 6 hours (as long as your family doctor has told you that you can take it) for fever or pain. and straight to ER if unable to lower temp less than 101.0 after medication given *Warm salt water gargles may help to soothe the throat *Throat Lozenges? *Warm fluids like tea with honey may help to soothe the throat? *Sleep elevated *Humidifier/Vaporizer *Your throat swab was sent for culture. Those results are typically sent to your primary care. Be sure to follow up in 2-3 days with your family doctor/primary care physician if no improvement so they can review those result and treat if necessary. If you don?t have a primary care doctor, I recommend you get one but in the mean time, you will have to return to a walk in clinic Follow up IMMEDIATELY for new or worsening symptoms or no Noticeable improvement over the next 48-72 hours. 911 for difficulty breathing or swallowing Clinical Impressions Clinical Impression: Pharyngitis Qualifiers: Pharyngitis/tonsillitis etiology: unspecified etiology Qualified Code(s): J02.9 - Acute pharyngitis, unspecified Instructions Patient Instructions: Sore Throat, Middle Ear Infection Discharge ED Provider: Bette Carr [facility] General Stated complaint: sore throat Mode of Arrival: Ambulatory Source of Information: Patient Limitations: No Limitations Time Seen by Provider: 06/20/23 17:18 Description of Symptoms (Recalled from Triage Doc. by RN): PATIENT C/O SORE THROAT X 1 WEEK HEENT Symptoms (Recalled from RN notes): Yes Resp Symptoms (Recalled from RN notes): No Skin Symptoms (Recalled from RN notes): No MS Symptoms (Recalled from RN notes): No Functional Status (Recalled from RN notes): WNL History of Present Illness Provider Complaint: Patient states that he has been having sore throat for close to a week that has continued to get worse States that he has tried several over the counter Medications but nothing has helped States that today his throat was hurting worse so he came in Related Data Previous Rx's Medication Instructions Recorded amoxicillin 875 mg tablet 875 mg PO BID #20 tabs 06/20/23 Allergies Allergy/AdvReac Type Severity Reaction Status Date / Time No Known Allergies Allergy Verified 06/15/23 14:38 Worker's Comp Is this a Worker's Comp case?: No PFSH PFS Disclaimer: The information contained in this section may have been updated after the patient was seen, as this information can be updated by other users. Social History Smoking Status: Never smoker alcohol intake: never substance use type: denies use current occupational status: employed Travel in the last 8 weeks: None household members: family housing: house number of children: 0 ROS Obtained: Yes All systems reviewed & no additional complaints except as documented and Yes Systems reviewed as appropriate & no additional complaints except as documented Constitutional Constitutional: Reports system reviewed and no additional complaints, except as documented and Reports as per HPI ENT Ears, Nose, Mouth, and Throat: Reports system reviewed and no additional complaints, except as documented, Reports as per HPI and Reports sore throat Cardiovascular Cardiovascular: Reports system reviewed and no additional complaints, except as documented and Reports as per HPI Respiratory Respiratory: Reports system reviewed and no additional complaints, except
[2023-06-20 17:22] VITALS: BP 116/70; PULSE 87; RESP 18; TEMP 37.2; O2SAT 98
== END 2023-06-20 17:24 | disposition home or self-care (01) ==
PROVIDERS: Emergency Provider Nurse Practitioner; PCP Nurse Practitioner Family
DX: J02.9 Acute pharyngitis, unspecified (principal); H66.91 Otitis media, unspecified, right ear
CPT/HCPCS: 87880; 99212; 99214; G0463

== ENCOUNTER 2024-05-09 14:35 | Outpatient (POV) | payer OTHER, SELFPAY | END 2024-05-09 23:59 | disposition home or self-care (01) | LOC: SC 14:35 | PROVIDERS: Visit Provider Specialist/Technologist | DX: Z00.00 Encounter for general adult medical examination without abnormal findings (principal) ==

== ENCOUNTER 2024-12-19 11:18 | Emergency (ER) | payer OTHER, SELFPAY ==
[2024-12-19 11:30] VITALS: BP 135/73; PULSE 70; RESP 19; TEMP 36.9; O2SAT 99; BMI 32.8
--- NOTE | 2024-12-19 11:44 | ED_ITS ---
Discharge Plan Disposition Patient Disposition: Home, Self-Care Chief Complaint: Headache Prescriptions Prescriptions: No Action levocetirizine [Xyzal] 5 mg tablet 5 mg PO DAILY Qty: 90 3RF azelastine 137 mcg (0.1 %) aerosol,spray 2 spray intranasal BID Qty: 30 3RF Rx Instructions: administer into each nostril bupropion HCl [Wellbutrin XL] 150 mg tablet extended release 24 hr 150 mg PO DAILY Qty: 30 1RF Referrals Follow up/Referrals: ProviderNicola MD [Primary Care Provider] - See instructions Cipriano Mcfarland MD [Staff Physician] - See instructions Activity Restrictions/Add. Instructions Additional Instructions/Restrictions: Call your family doctor to establish care for this visit to the emergency department and schedule follow-up within 48 hours to ensure improvement. If you have any worsening of your condition or any other concerning signs or symptoms, return to the emergency department or your primary care doctor for further evaluation. Clinical Impressions Clinical Impression: Encounter for medical assessment, Headache Print Language Print Language: Mexican Discharge ED Provider: Jeronimo Hi General Adult HPI General Chief complaint: Headache Stated complaint: High BP Headache Time Seen by Provider: 12/19/24 11:24 Mode of Arrival: Ambulatory Source of Information: Patient Description of Symptoms (Recalled from ER Triage Doc. by RN): pt presents to ED with c/o high blood pressure and headache. pt reports last night he began to have left sided headache. pt reports he then checked his BP due to headache and it was elevated. 140/100 at home. History of Present Illness HPI narrative: Please note that above description of symptoms, in this electronic medical record under categorization of recalled from ER triage doctor by RN are reflective of an initial nursing assessment, however, is not reflective of my full history and physical exam that was personally taken and clarified. Consequentially, this preceding description of symptoms, which may include the patient's categorized chief complaint in the EMR, do not reflect my personal clinical impression, and the ultimate description of history of present illness and patient stated complaints should be deferred to this section of the note. Unless stated otherwise or congruent with this section of the note, additional signs, symptoms, or incongruence should be interpreted as inaccurate with my clinical impression. Related Data Previous Rx's ?Medication ?Instructions ?Recorded azelastine 137 mcg (0.1 %) nasal 2 spray intranasal BID #30 mL 12/26/23 spray levocetirizine 5 mg tablet (Xyzal) 5 mg PO DAILY #90 tabs 12/26/23 bupropion HCl 150 mg 24 hr tablet, 150 mg PO DAILY #30 tabs 12/12/24 extended release (Wellbutrin XL) Allergies Allergy/AdvReac Type Severity Reaction Status Date / Time No Known Allergies Allergy Verified 10/09/24 14:34 [facility] Disclaimer: The information contained in this section may have been updated after the patient was seen, as this information can be updated by other users. Medical History (Updated 12/19/24 @ 11:46 by Jeronimo Hi MD) TMJ (dislocation of temporomandibular joint) Eustachian tube dysfunction Tinnitus Ear congestion Otalgia, left ear Social History Smoking Status: Never smoker alcohol intake: never substance use type: denies use current occupational status: employed Travel in the last 8 weeks: None household members: family housing: house number of children: 0 Have you lived/traveled outside US in past 30 days?: No Contact w/someone who lives/traveled outside US past 30 days?: No Exposure to someone with infectious disease in past 14 days?: No Do you have a fever (greater than 100.4 F or 38 C)?: No Have you tested positive for COVID-19: No Exposed to someone with COVID-19 in past 14 days?: No Do you have a sore throat?: No Do you have a cough?: No Do you have any weakness?: No Do you have any diarrhea?: No Are you experiencing any unusual bleeding?: No Do you have any muscle aches/pain?: No Do you have any abdominal pain?: No Are you experiencing loss of taste or smell?: No Other Medical History Have you received the Flu Vaccine for this season: No Have you received the Pneumonia Vaccine: No ROS Obtained: Yes All systems reviewed & no additional complaints except as documented Physical Exam General General appearance: alert Head Head exam: atraumatic and normocephalic Eye Eye exam: Present normal appearance, PERRL and EOMI Neck Neck exam: Present normal inspection, full ROM and trachea midline Respiratory Respiratory exam: Absent respiratory distress, wheezes, stridor, accessory muscle use or prolonged expiratory phase Cardiovascular Cardiovascular exam: Present other (Pulses equal symmetric in upper and lower extremities) Abdominal Exam Abdominal exam: Present soft; Absent distention, tenderness or pulsatile mass Extremities Exam Extremities exam: Absent edema Neurological Exam Neurological exam: Present alert, oriented X3 and CN II-XII intact; Absent motor sensory deficit Skin Skin exam: Present warm and dry; Absent diaphoresis or erythema Medical Decision Making Medical Records Medical records reviewed: Yes I reviewed the patient's medical records. Screening: Per USPSTF and CDC recommendations, given the prevalence of disease in our region, it is our hospital?s policy to screen for HIV and viral Hepatitis for all patients aged 18 and over and those with ongoing risk factors. Deng Inquiry Pt receiving controlled substance: No Deng was queried for this patient: No Vital Signs: 12/19/24 11:30 Temperature 98.5 F Temperature Source Oral Pulse Rate [Left Radial] 70 Respiratory Rate 19 Blood Pressure [Right Arm] 135/73 Blood Pressure Mean [Right Arm] 93 02 Sat by Pulse Oximetry 99 Orders (Tests/Meds): ORDERS Category Date Time Status HIV Combo Stat Lab 12/19/24 11:34 Ordered Hepatitis C Ab Qual. W/ RFX Stat Lab 12/19/24 11:34 Ordered Medical Decision Narrative: 24-year-old male history of anxiety presenting with multiple complaints. Patient states that yesterday, 12/18, he started having a headache that was mostly left-sided, started in his frontal area, radiated toward the back and his occiput. No vision changes, neurologic deficits, or any other concerns. He took Tylenol and Motrin both of these things seem to help it, but headache continued. States that he woke up today, still having mild headache. He took his blood pressure multiple times throughout the day yesterday and states that it was 1 40-1 50 systolic, which is very abnormal for him. Has multiple thoughts as to why it may be related to other anatomic problems. States that he has teeth that are angulated differently on the right side of his maxilla, also states that he has a eustachian tube that smaller on the left side that causes chronic fullness in his left ear, among many other thoughts. When I initially evaluated patient, appears mildly anxious, but very clinically well-appearing. Responding appropriately, hemodynamically stable. Initial blood pressure while I was in the room speaking with him was 122/66. Nontachycardic. Neurologically intact. Cardiac exam without murmurs gallops or rubs. Lungs are clear. I feel this is likely business center representative of mild migraine syndrome. Medications were offered to patient including migraine cocktail, but he states that if it truly seems like migraine that he will take Tylenol and Motrin and go home and follow- up. He states that he does not have a family physician on review of social determinants of health, so referral information would be given to him and he is agreeable to this plan. Because patient at baseline without signs or symptoms of clinical decompensation, deemed appropriate for discharge. Results were relayed to patient[] who voiced understanding and were agreeable to outpatient management and follow up. I discussed my clinical impression with patient[] and answered all questions. At this time, the evidence for any other entities in the differential is insufficient to warrant any further testing or ED observation. This was explained as well. Advisory was given that persistent or worsening symptoms require further evaluation. I confirmed the understanding of this discussion. Clinical Partner disclaimer Much of this encounter note is an electronic refrigeration operator spoken language to printed text. Electronic refrigeration operator of the spoken language may permit errors. Although I have reviewed the note, some errors may still exist. Critical Care Critical Care Time Critical Care Time: No
[2024-12-19 11:50] VITALS: BP 135/75; PULSE 70; RESP 19; TEMP 36.9
== END 2024-12-19 11:52 | disposition home or self-care (01) ==
PROVIDERS: Emergency Provider Emergency Medicine
DX: R51.9 Headache, unspecified (principal)
CPT/HCPCS: 99283

== ENCOUNTER 2025-03-27 16:16 | Emergency (ER) | payer OTHER, SELFPAY ==
[2025-03-27] VITALS (9 sets, daily range): BP systolic 110–121; BP diastolic 66–78; PULSE 55–72; RESP 16–19; TEMP 36.9–37.1; O2SAT 95–98; BMI 31.5
--- OUTSIDE RECORDS SUMMARY | 2025-03-27 16:40 | XMS_ITS | Clinical Summary ---
Author Organization Healthcare Address [address] [place] [address] Care Team Providers Care Manager Commission Name Role Phone Cipriano Mims MD Primary Care Provider [phone] Family History Medical History Relation Name Comments Blood clots Mother Diabetes Other 1 Diabetes Other 2 Conversions - Other Other 3 Physical violence Relation Name Status Comments Mother Other 1 Other 2 Other 3 Social History Tobacco Use Types Packs/Day Years Used Date Smoking Tobacco: Never Assessed Sex and Gender Information Value Date Recorded Sex Assigned at Not on file Legal Sex Male 7:34 PM EDT Gender Identity Not on file Sexual Orientation Not on file Last Filed Vital Signs Vital Sign Reading Time Taken Comments Blood Pressure - - Pulse - - Temperature - - Respiratory Rate - - Oxygen Saturation - - Inhaled Oxygen Concentration - - Weight 82.6 kg (182 lb 0.2 oz) 12/10/2015 9:16 A M EDT Height 172.7 cm (5' 8 ) 12/10/2015 9:16 AM EDT Body Mass Index 27.67 12/10/2015 9:16 AM EDT Plan of Treatment Health Maintenance Due Date Last Done Comments [facility]-Depression Screening 1999 [facility]-Infant/Child/Adol SDOH Screenings 1999 [facility]-Varicella Vaccines (2 of 2 - 2-dose childhood series) 12/01/2011 09/08/2011 [facility]- SDOH Screenings 2017 [facility]-Adult SDOH Screenings 2017 [facility]-Hepatitis B Vaccines (1 of 3 - 19+ 3-dose series) 2018 [facility]-DTaP,Tdap,and Td Vaccines (2 - Td or Tdap) 02/14/2020 02/13/2010 [id number]-72 Vaccine (2 - 2023- season) 2024 05/14/2021 [facility]-Influenza Vaccine (Season Ended) 2025 11/20/2018, 07/12/2012, 07/07/2011, Additional history exists [facility]-Zoster Vaccines (1 of 2) 2049 09/08/2011 HPV Vaccines Completed 10/04/2017, 12/26, 09/08/2011, Additional history exists [facility]-Hepatitis A Vaccines Completed 018, 07/12/2012, 09/08/2011 [facility]-HIB Vaccines Aged Out No longer e ligible based on patient's age to complete this topic [facility]-IPV Vaccines Aged Out No longer e ligible based on patient's age to complete this topic [facility]-Pneumococcal Vaccine: Pediatrics (0 to 5 Years) and At-Risk Patients (6 to 49 Years) Aged Out No longer eligible based on patient's age to complete this topic [facility]-Rotavirus Vaccines Aged Out No lo nger eligible based on patient's age to complete this topic Insurance [facility] MEDICAID Care Teams Manager Commission Relationship Specialty Start Date End Date Cipriano Mims MD [address] [place] [address] PCP - General 02/06/21
--- OUTSIDE RECORDS SUMMARY | 2025-03-27 16:40 | XMS_ITS | Clinical Summary ---
Author Organization [employer] ([place], [place], [place], [place]) Address [address] [place] [address] Care Team Providers Care Parking Enforcement Technician Name Role Phone Adeel Pinon APRN Primary Care Provider [phone] Social History Tobacco Use Types Packs/Day Years Used Date Smoking Tobacco: Never Assessed Food Insecurity Answer Date Recorded Food run out past 12 months Not on file 05/28 Food did not last past 12 months Not on file 06/21/2024 Employment Answer Date Recorded Help finding and keeping a job Not on file 0 06/21/2024 Family and Community Support Answer Gamaliel e Recorded Help with Day to Day Activities Not on file 06/21/2024 Feeling Lonely or Isolated Not on file 06/21 Educational Attainment Answer Date Ruben rded Speak language other than Amharic at home Not on file 06/21/2024 Want help with school or training Not on file 06/21/2024 Substance Use Answer Date Recorded Used prescription meds for non-medical reasons N ot on file 06/21/2024 Used illegal drugs past 12 months Not on file 06/21/2024 Sex and Gender Information Value Date Recorded Sex Assigned at Male 07/16/2024 7:43 AM CDT Legal Sex Male 3:44 PM CDT Gender Identity Not on file Sexual Orientation Not on file Plan of Treatment Health Maintenance Due Date Last Done Comments Tobacco Cessation Counseling and Screening (12+) 2011 HIV Screening 2014 Hepatitis C Screening 2017 DTAP/TDAP/TD VACCINES (2 - T d or Tdap) 02/14/2020 02/13/2010 COVID-19 VACCINE (2023-2 5 season) 2024 06/12/2021, 05/14/2021 Influenza Vaccine (#1) 2025 Pneumococcal Vaccine: 0-49 Years Aged Out No longer eligible b ased on patient's age to complete this topic Insurance AETNA [facility] Care Teams Parking Enforcement Technician Relationship Specialty Start Date End Date Adeel Pinon APRN [address] [place] [id number] PCP - General Nurse Practitioner 07/16/24
--- OUTSIDE RECORDS SUMMARY | 2025-03-27 16:40 | XMS_ITS | Encounter Summary ---
Author Organization Healthcare Address [address] [place] [address] Care Team Providers Care Bobtailer Name Role Phone Cipriano Mims MD Primary Care Provider [phone] Encounter Details Date Type Department Care Team (Late st Contact Info) Description 04/22/2021 Community [facility] [address] [place] [address] Emerson Joaquin, FURNACE COMBUSTION ANALYST [address] [place] [address] Hypertrophy of male breast (Primary Dx) Social History Tobacco Use Types Packs/Day Years Used Date Smoking Tobacco: Never Assessed Sex and Gender Information Value Date Recorded Sex Assigned at Not on file Legal Sex Male 7:34 PM EDT Gender Identity Not on file Sexual Orientation Not on file documented as of this encounter Plan of Treatment Not on file documented as of this encounter Visit Diagnoses Diagnosis Hypertrophy of male breast- Primary Hypertrophy of breast documented in this encounter Care Teams Bobtailer Relationship Specialty Start Date End Date Cipriano Mims MD [address] [place] [id number] PCP - General 02/06/21 documented as of this encounter
--- OUTSIDE RECORDS SUMMARY | 2025-03-27 16:40 | XMS_ITS | Referral Summary ---
Author Organization [employer] ([place], [place], [place], [place]) Address [address] [place] [address] Care Team Providers Care Web Art Director Name Role Phone Adeel Pinon APRN Primary Care Provider [phone] Social History Tobacco Use Types Packs/Day Years [...] Date Ruben rded Speak language other than Lithuanian at home Not on file 06/21/2024 Want [...] Orientation Not on file Plan of Treatment Not on file Insurance AETNA [facility] Care Teams Web Art Director Relationship Specialty Start Date End Date Adeel Pinon APRN [address] [place] [address] PCP - General Nurse Practitioner 07/16/24
--- OUTSIDE RECORDS SUMMARY | 2025-03-27 16:40 | XMS_ITS | Encounter Summary ---
Author Organization [employer] ([place], [place], [place], [place]) Address [address] [place] [address] Care Team Providers Care Feed Research Technician Name Role Phone Adeel Pinon APRN Primary Care Provider Encounter Details Date Type Department Care Team (Late st Contact Info) Description 06/21/2024 Outside Orders [facility] Central Scheduling [address] [place] [address] Kelsey Nixon APRN [address] [place], [place] [id number] Social History Tobacco Use Types Packs/Day Years [...] Date Ruben rded Speak language other than Sao Tomean at home Not on file 06/21/2024 Want [...] documented as of this encounter Visit Diagnoses Not on filedocumented in this encounter Care Teams Feed Research Technician Relationship Specialty Start Date End Date Adeel Pinon APRN [address] [place] [address] PCP - General Nurse Practitioner 07/16/24 documented as of this encounter
[2025-03-27 16:42] LABS: Microscopic, Urine URINE MICROSCOPIC (MICROSCOPIC)
--- NOTE | 2025-03-27 16:44 | CT_ITS ---
PROCEDURE INFORMATION: Exam: CT Abdomen And Pelvis With Contrast Exam date and time: 03/27/2025 5:16 PM Age: 24 years old Clinical indication: Abdominal pain; Additional info: Pelvic pain TECHNIQUE: Imaging protocol: Computed tomography of the abdomen and pelvis with contrast. Radiation optimization: All CT scans at this facility use at least one of these dose optimization techniques: automated exposure control; mA and/or kV adjustment per patient size (includes targeted exams where dose is matched to clinical indication); or iterative reconstruction. Contrast material: ISOVUE 370; Contrast volume: 75 ml; Contrast route: IV; COMPARISON: CT ABDOMEN PELVIS W CON 10/17/2021 2:08 PM FINDINGS: Liver: Normal. No mass. Gallbladder and biliary ducts: Normal. No calcified stones. No ductal dilation. Pancreas: Normal. No ductal dilation. Spleen: Normal. No splenomegaly. Adrenal glands: Normal. No mass. Kidneys and ureters: Normal. No hydronephrosis. Stomach and bowel: Unremarkable. No obstruction. No mucosal thickening. Appendix: No evidence of appendicitis. Intraperitoneal space: Unremarkable. No free air. No significant fluid collection. Vasculature: Unremarkable. No abdominal aortic aneurysm. Lymph nodes: Unremarkable. No enlarged lymph nodes. Urinary bladder: Unremarkable as visualized. Reproductive: Unremarkable as visualized. Bones/joints: Unremarkable. No acute fracture. Soft tissues: Unremarkable. IMPRESSION: No acute findings.
[2025-03-27 16:49] LABS: Bilirubin,Urine Negative (Negative); Color,Urine YELLOW (Yellow); Glucose,Urine (UA) Negative (Negative); Ketones,Urine Negative (Negative); Leukocyte Esterase,Urine Negative (Negative); PH,Urine 6.0 (5.0-8.5); Protein,Urine Negative (Negative); Specific Gravity, Urine >= 1.030 (1.005-1.030); Urobilinogen,Urine 1.0 EU/dl (0.2)
[2025-03-27 17:01] LABS: Hematocrit 45.4 % (42.0-52.0); Hemoglobin 15.2 g/dL (14.1-18.0); Immature Granulocytes % 0.2 %; Mean Corpuscular HGB Conc 33.5 g/dL (31.8-35.4); Mean Corpuscular Hemoglobin 29.0 pg (27.0-31.2); Mean Corpuscular Volume 86.5 fl (80-94); Nucleated Red Blood Cells % 0 %; Platelet Count 239 K/mm3 (142-424); Red Blood Count 5.25 M/mm3 (4.60-6.20); Red Cell Distribution Width-SD 38.3 fL; White Blood Count 6.5 K/mm3 (4.8-10.8)
[2025-03-27] MEDS: KETOROLAC 30MG/ML VIAL 30 MG IV (17:02)
[2025-03-27 17:03] LABS: RBC,Urine Occasional #/hpf (0-3)
[2025-03-27] MEDS: ACETAMINOPHEN 1,000MG/100ML VIAL 1000 MG IV (17:03)
[2025-03-27 17:04] LABS: Bacteria,Urine 2+ /lpf; Mucus,Urine 2+ /lpf
[2025-03-27 17:14] LABS: Alanine Aminotransferase 30 U/L (12-78); Albumin Level 5.2 g/dl (3.5-5.0); Albumin/Globulin Ratio 1.8 (1.1-1.8); Alkaline Phosphatase 65 U/L (38-126); Anion Gap 15.2 mEq/L (5-15); Aspartate Amino Transferase 35 U/L (17-59); Bilirubin,Total 0.9 mg/dl (0.2-1.3); Blood Urea Nitrogen 15 mg/dl (9-20); Calcium 9.3 mg/dl (8.4-10.2); Carbon Dioxide 28 mmol/L (22.0-30.0); Chloride 102 mmol/L (98-107); Creatinine Clearance Estimated 199 mL/min (50-200); Creatinine,Serum 0.80 mg/dl (0.66-1.25); Estimated Glomerular Filt Rate 118 ml/min (>60); GFR (African American) 143 ML/MIN (>60); Globulin 2.9 g/dL (1.3-3.2); Glucose 85 mg/dl (74-100); Lipase 130 U/L (23-300); Magnesium 2.2 mg/dl (1.6-2.3); Potassium 4.2 mmoL/L (3.5-5.1); Sodium 141 mmol/L (136-145); Total Protein,Serum 8.1 g/dl (6.3-8.2)
[2025-03-27] MEDS: IOPAMIDOL-370 (76%);100ML BOTTLE 75 ML IV (17:15)
[2025-03-27] MEDS: SODIUM CHLORIDE 0.9% 10ML SYR (RAD ONLY) 10 ML IV (17:15)
--- NOTE | 2025-03-27 17:22 | ED_ITS ---
Discharge Plan Disposition Patient Disposition: Home, Self-Care Prescriptions Prescriptions: No Action fluticasone propionate [Allergy Relief (fluticasone)] 50 mcg/actuation spray,suspension 1 spray intranasal DAILY Qty: 16 0RF Rx Instructions: administer into each nostril levocetirizine [Allergy Relief (levocetirizin)] 5 mg tablet 5 mg PO DAILY PRN (Reason: allergy symptoms) Qty: 30 0RF bupropion HCl [Wellbutrin SR] 100 mg tablet sustained-release 12 hr 100 mg PO DAILY Qty: 30 2RF Referrals Follow up/Referrals: Rafat Bowen MD [Staff Physician, Urology] - See instructions Cipriano Mcfarland MD [Primary Care Provider, Family Practice] - See instructions Activity Restrictions/Add. Instructions Additional Instructions/Restrictions: No emergent medical condition identified today to explain your symptoms. The remains some diagnostic uncertainty but no further emergent evaluation or treatment is needed. Given the fact that you have had some discomfort in your testicles after urinating I recommend you follow-up with your urologist to discuss this further. Return to the emergency room with any significant worsening of your symptoms. Clinical Impressions Clinical Impression: Abdominal pain Instructions Patient Instructions: DI for Acute Abdominal Pain Print Language Print Language: Greenlandic Discharge ED Provider: Fidel Rivero General Adult HPI <Roma Espinoza (ED), CREATIVE WRITING PROFESSOR - Last Filed: 03/27/25 19:03> General Chief complaint: Abdominal Pain Stated complaint: abdominal pain behind belly button,burping Time Seen by Provider: 03/27/25 16:27 Mode of Arrival: Ambulatory Source of Information: Patient Description of Symptoms (Recalled from ER Triage Doc. by RN): pt c/o umbilical abd pain, pressure in his penis with urination, nausea and pain in his darrin. pt states the abd pain is squeezing, shooting and sharp. pt states his pain is 6/10 History of Present Illness HPI narrative: 24-year-old male presents to the ED today with complaint of abdominal pain, pain behind his umbilicus and pain behind his testicles. Patient states that he has been lifting at work and felt like he had squeezing behind his belly button. He does have pain and pressure with urination Related Data Previous Rx's ?Medication ?Instructions ?Recorded fluticasone propionate 50 1 spray intranasal DAILY #16 grams 02/24/25 mcg/actuation nasal spray,suspension (Allergy Relief (fluticasone)) levocetirizine 5 mg tablet 5 mg PO DAILY PRN allergy s ymptoms 02/24/25 (Allergy Relief (levocetirizine)) #30 tabs bupropion HCl 100 mg tablet,12 hr 100 mg PO DAILY #30 ea 03/12/25 sustained-release (Wellbutrin SR) Allergies Allergy/AdvReac Type Severity Reaction Status Date / Time No Known Allergies Allergy Verified 03/12/25 10:02 PFS <Roma Espinoza (ED), CREATIVE WRITING PROFESSOR - Last Filed: 03/27/25 19:03> PFS Disclaimer: The information contained in this section may have been updated after the patient was seen, as this information can be updated by other users. Medical History TMJ (dislocation of temporomandibular joint) Eustachian tube dysfunction Tinnitus Ear congestion Otalgia, left ear Social History Smoking Status: Never smoker alcohol intake: never substance use type: denies use current occupational status: employed Travel in the last 8 weeks?: None household members: family housing: house number of children: 0 Have you lived/traveled outside US in past 30 days?: No Contact w/someone who lives/traveled outside US past 30 days?: No Exposure to someone with infectious disease in past 14 days?: No Do you have a fever (greater than 100.4 F or 38 C)?: No Have you tested positive for COVID-19?: No Exposed to someone with COVID-19 in past 14 days?: No Do you have a sore throat?: No Do you have a cough?: No Do you have any weakness?: No Do you have any diarrhea?: No Are you experiencing any unusual bleeding?: No Do you have any muscle aches/pain?: No Do you have any abdominal pain?: No Are you experiencing loss of taste or smell?: No Other Medical History Have you received the Flu Vaccine for this season: No Have you received the Pneumonia Vaccine: No <Roma Espinoza (ED), CREATIVE WRITING PROFESSOR - Last Filed: 03/27/25 19:03> ROS Obtained: Yes Systems reviewed as appropriate & no additional complaints except as documented Constitutional Constitutional: Reports as per HPI Physical Exam <Roma Espinoza (ED), CREATIVE WRITING PROFESSOR - Last Filed: 03/27/25 19:03> General General appearance: alert Head Head exam: atraumatic and normocephalic Eye Eye exam: Present PERRL and EOMI ENT ENT exam: Present normal oropharynx and mucous membranes moist Neck Neck exam: Present full ROM and trachea midline Respiratory Respiratory exam: Present normal lung sounds bilaterally Cardiovascular Cardiovascular exam: Present regular rate, normal rhythm, normal heart sounds, +S1 and +S2 Abdominal Exam Abdominal exam: Present soft and normal bowel sounds Abdominal tenderness: Present epigastrium and suprapubic Extremities Exam Extremities exam: Present normal inspection, full ROM and normal capillary refill Neurological Exam Neurological exam: Present alert, oriented X3 and normal gait Skin Skin exam: Present warm, dry and intact Medical Decision Making <Roma Espinoza (ED), CREATIVE WRITING PROFESSOR - Last Filed: 03/27/25 19:03> Medical Records Screening: Per USPSTF and CDC recommendations, given the prevalence of disease in our region, it is our hospital?s policy to screen for HIV and viral Hepatitis for all patients aged 18 and over and those with ongoing risk factors. Deng Inquiry Pt receiving controlled substance: No Deng was queried for this patient: No Vital Signs: 03/27/25 16:39 03/27/25 16:53 03/27/25 17:00 Temperature 98.8 F Temperature Source Oral Pulse Rate 63 56 L Pulse Rate [Left] 61 Respiratory Rate 19 16 17 Blood Pressure 113/78 114/66 Blood Pressure [Right Arm] 113/78 Blood Pressure Mean 89 81 Blood Pressure Mean [Right Arm] 89 Blood Pressure Source [Right Arm] Automatic Cuff Blood Pressure Position [Right Arm] Sitting 02 Sat by Pulse Oximetry 98 97 97 Oxygen Delivery Method Room Air Room Air Room Air 03/27/25 17:30 03/27/25 18:00 03/27/25 18:30 Temperature Temperature Source Pulse Rate 62 57 L 56 L Pulse Rate [Left] Respiratory Rate 19 Blood Pressure 118/68 118/66 110/68 Blood Pressure [Right Arm] Blood Pressure Mean 87 78 Blood Pressure Mean [Right Arm] Blood Pressure Source [Right Arm] Blood Pressure Position [Right Arm] 02 Sat by Pulse Oximetry 97 98 97 Oxygen Delivery Method Room Air Room Air Room Air 03/27/25 19:00 03/27/25 19:31 Temperature Temperature Source Pulse Rate 55 L 61 Pulse Rate [Left] Respiratory Rate Blood Pressure 121/73 121/70 Blood Pressure [Right Arm] Blood Pressure Mean Blood Pressure Mean [Right Arm] Blood Pressure Source [Right Arm] Blood Pressure Position [Right Arm] 02 Sat by Pulse Oximetry 98 95 Oxygen Delivery Method Lab Data Lab Results 03/27/25 16:36: Urine Color Yellow, Urine Appearance Clear, Urine pH 6.0, Ur Specific [place] >= 1.030, Urine Protein Negative, Urine Glucose (UA) Negative, Urine Ketones Negative, Urine Blood Negative, Urine Nitrate Negative, Urine Bilirubin Negative, Urine Urobilinogen 1.0, Ur Leukocyte Esterase Negative, Urine RBC Occasional, Urine WBC 10-20, Ur Squamous Epith Cells 3-5, Urine Bacteria 2+, Urine Mucus 2+ 03/27/25 16:48: WBC 6.5, RBC 5.25, Hgb 15.2, Hct 45.4, MCV 86.5, MCH 29.0, MCHC 33.5, RDW 12.1, Plt Count 239, MPV 8.5, Neut % (Auto) 54.8, Lymph % (Auto) 32.9, [place] % (Auto) 7.4, Eos % (Auto) 4.2, Baso % (Auto) 0.5, Neut # (Auto) 3.5, Lymph # (Auto) 2.1, [place] # (Auto) 0.5, Eos # (Auto) 0.3, Baso # (Auto) 0.0, Sodium 141, Potassium 4.2, Chloride 102, Carbon Dioxide 28, Anion Gap 15.2 H, BUN 15, Creatinine 0.80, Estimated Creat Clear 199, Estimated GFR 118, Est GFR ( Amer) 143, Glucose 85, Calcium 9.3, Magnesium 2.2, Total Bilirubin 0.9, AST 35, ALT 30, Alkaline Phosphatase 65, Total Protein 8.1, Albumin 5.2 H, Globulin 2.9, Albumin/Globulin Ratio 1.8, Lipase 130, HCV Ab RAZIA w/Rflx PCR Qn Negative, HIV Ag/Ab Combo Qual Negative 03/27/25 16:48 03/27/25 16:48 Orders (Tests/Meds): ED MEDICATIONS Discontinued Medications Generic Name Dose Route Start Last Admin Trade Name Diann PRN Reason Stop Dose Admin Acetaminophen 1,000 mg 03/27/25 16:48 03/27/25 17:03 Acetaminophen 1,000mg/100ml Vial IV 03/27/25 16:49 1,000 mg ONCE ONE Administration Iopamidol 75 ml 03/27/25 17:14 03/27/25 17:15 Iopamidol-370 (76%);100ml Bottle IV 03/27/25 17:15 75 ml ONCE ONE Administration Ketorolac Tromethamine 30 mg 03/27/25 16:48 03/27/25 17:02 Ketorolac 30mg/Ml Vial IV 03/27/25 16:49 30 mg ONCE ONE Administration Sodium Chloride 10 ml 03/27/25 17:14 03/27/25 17:15 Sodium Chloride 0.9% 10ml Syr (Rad Only) IV 03/27/25 17:15 10 ml ONCE ONE Administration ORDERS Category Date Time Status CT abdomen pelvis w con Stat Cat Scan 03/27/25 16:44 Completed CBC [Complete Blood Count Auto Diff] Stat Lab 03/27/25 16:48 Completed Comprehensive Metabolic Panel Stat Lab 03/27/25 16:48 Completed HIV Combo Stat Lab 03/27/25 16:48 Completed Hepatitis C Ab Qual. W/ RFX Stat Lab 03/27/25 16:48 Completed Lipase Stat Lab 03/27/25 16:48 Completed Magnesium Stat Lab 03/27/25 16:48 Completed UA [Urinalysis and Microscopic] Stat Lab 03/27/25 16:36 Completed Urine Culture Stat Micro 03/27/25 16:36 Received Medical Decision Narrative: patient is a 4-year-old male presenting to the emergency department for evaluation of abdominal pain that started yesterday. Patient is hemodynamically stable and nontoxic-appearing upon arrival, afebrile. Differential diagnosis includes cholecystitis, UTI, kidney stone, among others. Workup will be conducted with hematologic labs, specific imaging. Initial inventions include crystalloid bolus, analgesics. Awaiting results of CT scan. Patient stable. Dr. Rivero is taking over care. <Fidel Rivero MD - Last Filed: 03/27/25 19:51> Vital Signs: 03/27/25 16:39 03/27/25 16:53 03/27/25 17:00 Temperature 98.8 F Temperature Source Oral Pulse Rate 63 56 L Pulse Rate [Left] 61 Respiratory Rate 19 16 17 Blood Pressure 113/78 114/66 Blood Pressure [Right Arm] 113/78 Blood Pressure Mean 89 81 Blood Pressure Mean [Right Arm] 89 Blood Pressure Source [Right Arm] Automatic Cuff Blood Pressure Position [Right Arm] Sitting 02 Sat by Pulse Oximetry 98 97 97 Oxygen Delivery Method Room Air Room Air Room Air 03/27/25 17:30 03/27/25 18:00 03/27/25 18:30 Temperature Temperature Source Pulse Rate 62 57 L 56 L Pulse Rate [Left] Respiratory Rate 19 Blood Pressure 118/68 118/66 110/68 Blood Pressure [Right Arm] Blood Pressure Mean 87 78 Blood Pressure Mean [Right Arm] Blood Pressure Source [Right Arm] Blood Pressure Position [Right Arm] 02 Sat by Pulse Oximetry 97 98 97 Oxygen Delivery Method Room Air Room Air Room Air 03/27/25 19:00 03/27/25 19:31 Temperature Temperature Source Pulse Rate 55 L 61 Pulse Rate [Left] Respiratory Rate Blood Pressure 121/73 121/70 Blood Pressure [Right Arm] Blood Pressure Mean Blood Pressure Mean [Right Arm] Blood Pressure Source [Right Arm] Blood Pressure Position [Right Arm] 02 Sat by Pulse Oximetry 98 95 Oxygen Delivery Method Lab Data Lab results reviewed: Yes I reviewed the patient's lab results. Lab Results 03/27/25 16:36: Urine Color Yellow, Urine Appearance Clear, Urine pH 6.0, Ur Specific [place] >= 1.030, Urine Protein Negative, Urine Glucose (UA) Negative, Urine Ketones Negative, Urine Blood Negative, Urine Nitrate Negative, Urine Bilirubin Negative, Urine Urobilinogen 1.0, Ur Leukocyte Esterase Negative, Urine RBC Occasional, Urine WBC 10-20, Ur Squamous Epith Cells 3-5, Urine Bacteria 2+, Urine Mucus 2+ 03/27/25 16:48: WBC 6.5, RBC 5.25, Hgb 15.2, Hct 45.4, MCV 86.5, MCH 29.0, MCHC 33.5, RDW 12.1, Plt Count 239, MPV 8.5, Neut % (Auto) 54.8, Lymph % (Auto) 32.9, [place] % (Auto) 7.4, Eos % (Auto) 4.2, Baso % (Auto) 0.5, Neut # (Auto) 3.5, Lymph # (Auto) 2.1, [place] # (Auto) 0.5, Eos # (Auto) 0.3, Baso # (Auto) 0.0, Sodium 141, Potassium 4.2, Chloride 102, Carbon Dioxide 28, Anion Gap 15.2 H, BUN 15, Creatinine 0.80, Estimated Creat Clear 199, Estimated GFR 118, Est GFR ( Amer) 143, Glucose 85, Calcium 9.3, Magnesium 2.2, Total Bilirubin 0.9, AST 35, ALT 30, Alkaline Phosphatase 65, Total Protein 8.1, Albumin 5.2 H, Globulin 2.9, Albumin/Globulin Ratio 1.8, Lipase 130, HCV Ab RAZIA w/Rflx PCR Qn Negative, HIV Ag/Ab Combo Qual Negative Orders (Tests/Meds): ED MEDICATIONS Discontinued Medications Generic Name Dose Route Start Last Admin Trade Name Freq PRN Reason Stop Dose Admin Acetaminophen 1,000 mg 03/27/25 16:48 03/27/25 17:03 Acetaminophen 1,000mg/100ml Vial IV 03/27/25 16:49 1,000 mg ONCE ONE Administration Iopamidol 75 ml 03/27/25 17:14 03/27/25 17:15 Iopamidol-370 (76%);100ml Bottle IV 03/27/25 17:15 75 ml ONCE ONE Administration Ketorolac Tromethamine 30 mg 03/27/25 16:48 03/27/25 17:02 Ketorolac 30mg/Ml Vial IV 03/27/25 16:49 30 mg ONCE ONE Administration Sodium Chloride 10 ml 03/27/25 17:14 03/27/25 17:15 Sodium Chloride 0.9% 10ml Syr (Rad Only) IV 03/27/25 17:15 10 ml ONCE ONE Administration ORDERS Category Date Time Status CT abdomen pelvis w con Stat Cat Scan 03/27/25 16:44 Completed CBC [Complete Blood Count Auto Diff] Stat Lab 03/27/25 16:48 Completed Comprehensive Metabolic Panel Stat Lab 03/27/25 16:48 Completed HIV Combo Stat Lab 03/27/25 16:48 Completed Hepatitis C Ab Qual. W/ RFX Stat Lab 03/27/25 16:48 Completed Lipase Stat Lab 03/27/25 16:48 Completed Magnesium Stat Lab 03/27/25 16:48 Completed UA [Urinalysis and Microscopic] Stat Lab 03/27/25 16:36 Completed Urine Culture Stat Micro 03/27/25 16:36 Received Medical Decision Narrative: patient is a 4-year-old male presenting to the emergency department for evaluation of abdominal pain that started yesterday. Patient is hemodynamically stable and nontoxic-appearing upon arrival, afebrile. Differential diagnosis includes cholecystitis, UTI, kidney stone, among others. Workup will be conducted with hematologic labs, specific imaging. Initial inventions include crystalloid bolus, analgesics. Awaiting results of CT scan. Patient stable. Dr. Rivero is taking over care. I was consulted by the JONE, and we discussed the complexity of the problems being addressed. I approved the treatment and management plan for this patient's care in the emergency department, thus performing a substantive portion of the medical decision making. Fidel Rivero MD, DARIO, FACEP This Dr. Rivero took over primary care from [facility] at about [address] scan was performed which I personally interpreted which shows no intra-abdominal pathology that is emergent. Radiology read is consistent with this. Patient serial assessments are benign patient described to me that he had some discomfort in his testicles with urination nothing definitive to explain those symptoms. Patient stable for outpatient follow-up I advised that he follow-up with urology to discuss this further patient was discharged in stable condition. Critical Care <Fidel Rivero MD - Last Filed: 03/27/25 19:51> Critical Care Time Critical Care Time: No
[2025-03-27 18:31] LABS: Hepatitis C Ab Qual. W/ RFX NEGATIVE (Negative)
== END 2025-03-27 20:01 | disposition home or self-care (01) ==
PROVIDERS: Nurse Practitioner; Emergency Provider Student in an Organized Health Care Education/Training Program; PCP Family Medicine
DX: R10.33 Periumbilical pain (principal)
CPT/HCPCS: 74177; 80053; 81001; 83690; 83735; 85025; 86803; 87086; 87389; 96374; 96375; 99285; J0131; J1885; Q9967

== ENCOUNTER 2025-06-23 20:47 | Emergency (ER) | payer OTHER, SELFPAY ==
--- NOTE | 2025-06-23 20:46 | ECG_ITS ---
APPROVED REPORT Exam: Resting ECG HR:69 bpm ECG Measurements Heart Rate 69 AXES NM 139 P 78 QRSd 105 QRS 38 QT 353 T 61 QTc 372 Conclusion SINUS RHYTHM WITH SINUS ARRHYTHMIA POSSIBLE RIGHT VENTRICULAR CONDUCTION DELAY [RSR (QR) IN V1/V2] BORDERLINE ECG UNCONFIRMED REPORT Electronically signed by : DARYL OLIVARES, 06/24/2025 23:02:48
[2025-06-23 20:54] VITALS: BP 137/83; PULSE 72; RESP 16; TEMP 36.6; O2SAT 97; BMI 31.5
--- OUTSIDE RECORDS SUMMARY | 2025-06-23 21:00 | XMS_ITS | Referral Summary ---
Author Organization [employer] ([place], [place], [place], [place]) Address [address] [place] [address] Care Team Providers Care Mandate Retail Service Merchandiser Name Role Phone Adeel Pinon APRN Primary Care Provider [phone] Social History Tobacco Use Types Packs/Day Years [...] Date Ruben rded Speak language other than Mosotho at home Not on file 06/21/2024 Want [...] of Treatment Not on file Insurance [employer] [facility] Care Teams Mandate Retail Service Merchandiser Relationship Specialty Start Date End Date Adeel Pinon APRN [address] [place] [address] PCP - General Nurse Practitioner 07/16/24
--- OUTSIDE RECORDS SUMMARY | 2025-06-23 21:00 | XMS_ITS | Clinical Summary ---
Author Organization Healthcare Address [address] [place] [address] Care Team Providers Care Spray Dyer Name Role Phone Cipriano Mims MD Primary Care Provider Family History Medical History Relation Name Comments [...] Date Last Done Comments [facility]-Depression Screening 1999 [facility]-/Child/Adol SDOH Screenings 1999 [facility]-Varicella Vaccines (2 of 2 - 2-dose childhood series) 12/01/2011 09/08/2011 [facility]- SDOH Screenings 2017 [facility]-Adult SDOH Screenings 2017 [facility]-Hepatitis B Vaccines (1 of 3 - 19+ 3-dose series) 2018 [facility]-DTaP,Tdap,and Td Vaccines (2 - Td or Tdap) 02/14/2020 02/13/2010 [id number] Vaccine (2 - 2024- season) 2025 05/14/2021 [facility]-Influenza Vaccine (#1) 05/27/202511/20, 07/12/2012, 07/07/2011, Additional history exists [facility]-Zoster Vaccines [...] patient's age to complete this topic Insurance [facility] MEDICAID Care Teams Spray Dyer Relationship Specialty Start Date End Date Cipriano Mims MD [address] [place] [address] PCP - General 02/06/21
--- OUTSIDE RECORDS SUMMARY | 2025-06-23 21:00 | XMS_ITS | Encounter Summary ---
Author Organization Healthcare Address [address] [place] [address] Care Team Providers Care External Relations Director Name Role Phone Cipriano Mims MD Primary Care Provider [phone] Encounter Details Date Type Department Care Team (Late st Contact Info) Description 04/22/2021 Community [facility] [address] [place] [address] Emerson Joaquin, SUPERVISOR FORMING AND TEMPERING [address] [place] [address] Hypertrophy of male breast (Primary [...] breast documented in this encounter Care Teams External Relations Director Relationship Specialty Start Date End Date Cipriano Mims MD [address] [place] [id number] PCP - General 02/06/21 documented as of this encounter
--- OUTSIDE RECORDS SUMMARY | 2025-06-23 21:00 | XMS_ITS | Clinical Summary ---
Author Organization [employer] ([place], [place], [place], [place]) Address [address] [place] [address] Care Team Providers Care Oil Sales And Service Rep Name Role Phone Adeel Pinon APRN Primary Care Provider [phone] Social History Tobacco Use Types Packs/Day Years [...] Date Ruben rded Speak language other than Mozambican at home Not on file 06/21/2024 Want [...] d or Tdap) 02/14/2020 02/13/2010 COVID-19 VACCINE (2024-2 6 season) 2025 06/12/2021, 05/14/2021 Influenza Vaccine (#1) 2025 Pneumococcal Vaccine: 0-49 Years Aged Out No longer eligible b ased on patient's age to complete this topic Insurance [facility]ETNA [facility] Care Teams Oil Sales And Service Rep Relationship Specialty Start Date End Date Adeel Pinon APRN [address] [place] [id number] PCP - General Nurse Practitioner 07/16/24
--- OUTSIDE RECORDS SUMMARY | 2025-06-23 21:00 | XMS_ITS | Encounter Summary ---
Author Organization [employer] ([place], [place], [place], [place]) Address [address] [place] [address] Care Team Providers Care Dynamics Ax Solution Architect Name Role Phone Adeel Pinon APRN Primary Care Provider [phone] Encounter Details Date Type Department Care Team (Late st Contact Info) Description 06/21/2024 Outside Orders [facility] Central Scheduling [address] [place] [address] Kelsey iNxon APRN [address] [place], [place] [id number] Social History Tobacco Use Types Packs/Day Years [...] Date Ruben rded Speak language other than Maldivian at home Not on file 06/21/2024 Want [...] on filedocumented in this encounter Care Teams Dynamics Ax Solution Architect Relationship Specialty Start Date End Date Adeel Pinon APRN [address] [place] [address] PCP - General Nurse Practitioner 07/16/24 documented as of this encounter
--- NOTE | 2025-06-23 21:26 | ED_ITS ---
Discharge Plan Disposition Patient Disposition: Home, Self-Care Condition: Good Prescriptions Prescriptions: No Action desvenlafaxine succinate [Pristiq] 25 mg tablet extended release 24 hr 25 mg PO DAILY Qty: 30 2RF Referrals Follow up/Referrals: Provider,Referral, [Primary Care Provider, Medical] - See instructions Activity Restrictions/Add. Instructions Additional Instructions/Restrictions: Try to avoid any stressors at night. Avoid caffeine. Try melatonin at night. Try to rest as much as possible for sleeping. Otherwise follow-up with your primary care provider for your high blood pressure. Keep a journal at home so that if you need a medication they can prescribe it. Clinical Impressions Clinical Impression: Difficulty sleeping Print Language Print Language: Vietnamese Discharge ED Provider: Katarina Kuo Adult HPI General Chief complaint: Anxiety Stated complaint: Chest Pain Time Seen by Provider: 06/23/25 20:53 Mode of Arrival: Ambulatory Source of Information: Patient Description of Symptoms (Recalled from ER Triage Doc. by RN): Pt presents to ED for CP/anxiety X multiple days. Pt states he thinks it is stress. Pt states he's talked to his therapist and dr about these feelings but he doesn't feel like he's getting any answers. Pt is not a good historian and is kind of all over the place while answering questions. Pt states he has CP however he points to his epigastric area. Pt rates pain 3/10 at this time. History of Present Illness HPI narrative: Patient is a 25-year-old male with a past medical history of anxiety and ADHD who presented to the emergency department with upper abdominal pain. Although triage note mentions chest pain, patient reports his pain is all epigastric in nature. Patient states that he was previously on an ADHD medication that was changed a few months ago. Patient denies any recent medication changes. Denies any chest pain or shortness of breath. Patient denies any nausea or vomiting. Patient denies any diarrhea. Patient denies any fevers cough or upper respiratory symptoms. Patient states that his biggest concern is that he is having difficulty sleeping at night. Patient states that he has tried blackout curtains, he has tried melatonin and is not having any significant relief. Patient states that he is able to sleep 5 or 6 hours at night. Patient states that he does have a history of depression but he has no suicidal thoughts or ideations. Patient is still doing activities that he enjoys. Patient states that his abdominal pain is not worse with anything in particular not worse with eating not significantly present currently and is intermittent in nature. Patient denies any recent trauma or falls. Patient denies any headache vision changes or other neurologic symptoms. Related Data Previous Rx's ?Medication ?Instructions ?Recorded desvenlafaxine succinate 25 mg 25 mg PO DAILY #30 tabs 06/17/25 tablet,extended release 24 hr (Pristiq) Allergies Allergy/AdvReac Type Severity Reaction Status Date / Time No Known Allergies Allergy Verified 06/17/25 14:[address] [facility] Disclaimer: The information contained in this section may have been updated after the patient was seen, as this information can be updated by other users. Medical History Anxiety Allergic rhinitis TMJ (dislocation of temporomandibular joint) Eustachian tube dysfunction Tinnitus Ear congestion Otalgia, left ear Social History Smoking Status: Unknown if ever smoked alcohol intake: never substance use type: denies use current occupational status: employed Travel in the last 8 weeks?: None household members: family housing: house number of children: 0 Have you lived/traveled outside US in past 30 days?: No Contact w/someone who lives/traveled outside US past 30 days?: No Exposure to someone with infectious disease in past 14 days?: No Do you have a fever (greater than 100.4 F or 38 C)?: No Have you tested positive for COVID-19?: No Exposed to someone with COVID-19 in past 14 days?: No Do you have a sore throat?: No Do you have a cough?: No Do you have any weakness?: No Do you have any diarrhea?: No Are you experiencing any unusual bleeding?: No Do you have any muscle aches/pain?: No Do you have any abdominal pain?: No Are you experiencing loss of taste or smell?: No Other Medical History Have you received the Flu Vaccine for this season: No Have you received the Pneumonia Vaccine: No ROS Obtained: Yes All systems reviewed & no additional complaints except as documented and Yes Systems reviewed as appropriate & no additional complaints except as documented Physical Exam General General appearance: alert and in no apparent distress Head Head exam: atraumatic, normocephalic and normal inspection Eye Eye exam: Present normal appearance, PERRL and EOMI; Absent scleral icterus ENT ENT exam: Present normal exam and normal external ear exam Neck Neck exam: Present normal inspection and full ROM Chest Chest inspection: Present normal inspection and symmetric chest wall rise Respiratory Respiratory exam: Present normal lung sounds bilaterally; Absent respiratory distress or wheezes Cardiovascular Cardiovascular exam: Present regular rate, normal rhythm and normal heart sounds Abdominal Exam Abdominal exam: Present soft and distention; Absent tenderness, guarding or rebound Extremities Exam Extremities exam: Present normal inspection and full ROM Back Exam Back exam: Present normal inspection and full ROM Neurological Exam Neurological exam: Present alert, oriented X3, normal gait and reflexes normal; Absent motor sensory deficit Psychiatric Psychiatric exam: Present normal affect, normal mood and anxious; Absent depressed, agitated, flat affect, manic, homicidal ideation or suicidal ideation Skin Skin exam: Present warm and dry Medical Decision Making Medical Records Medical records reviewed: Yes I reviewed the patient's medical records. Screening: Per USPSTF and CDC recommendations, given the prevalence of disease in our region, it is our hospital?s policy to screen for HIV and viral Hepatitis for all patients aged 18 and over and those with ongoing risk factors. Deng Inquiry Pt receiving controlled substance: No Vital Signs: 06/23/25 20:54 06/23/25 22:13 Temperature 97.9 F 97.9 F Temperature Source Oral Oral Pulse Rate 78 Pulse Rate [Left] 72 Respiratory Rate 16 16 Blood Pressure 115/70 Blood Pressure [Right Arm] 137/83 Blood Pressure Mean [Right Arm] 101 02 Sat by Pulse Oximetry 97 Oxygen Delivery Method Room Air Room Air Lab Data Lab results reviewed: Yes I reviewed the patient's lab results. Lab Results 06/23/25 20:52: WBC 6.6, RBC 5.19, Hgb 15.0, Hct 44.2, MCV 85.2, MCH 28.9, MCHC 33.9, RDW 12.3, Plt Count 233, MPV 8.7, Neut % (Auto) 56.0, Lymph % (Auto) 30.1, [place] % (Auto) 7.6, Eos % (Auto) 5.6, Baso % (Auto) 0.5, Neut # (Auto) 3.7, Lymph # (Auto) 2.0, [place] # (Auto) 0.5, Eos # (Auto) 0.4, Baso # (Auto) 0.0, Sodium 140, Potassium 3.9, Chloride 99, Carbon Dioxide 33 H, Anion Gap 11.9, BUN 15, Creatinine 0.90, Estimated Creat Clear 176, Estimated GFR 102, Est GFR ( Amer) 123, Glucose 101 H, Calcium 9.3, Total Bilirubin 1.4 H, AST 33, ALT 30, Alkaline Phosphatase 62, Total Protein 7.7, Albumin 4.7, Globulin 3.0, Albumin/Globulin Ratio 1.6, Lipase 175, TSH 0.49, Free T4 1.05 06/23/25 20:52 06/23/25 20:52 Orders (Tests/Meds): ORDERS Category Date Time Status CBC w/Auto Diff [Complete Blood Count Auto Diff] Stat Lab 06/23/25 20:52 Completed CMP [Comprehensive Metabolic Panel] Stat Lab 06/23/25 20:52 Completed Free T4 (Free Thyroxine) Stat Lab 06/23/25 20:52 Completed Lipase Stat Lab 06/23/25 20:52 Completed TSH [Thyroid Stimulating Hormone] Stat Lab 06/23/25 20:52 Completed Medical Decision Narrative: Patient is a 25-year-old male with a past medical history of ADHD, anxiety who presented to the emergency department with upper abdominal pain, and difficulty sleeping at night. On arrival, patient was hemodynamically stable with unremarkable vital signs. Differential includes but not limited to: Pancreatitis, electrolyte abnormalities, thyroid disease, dehydration, poor sleep hygiene, medication side effect, amongst others. Patient's exam was otherwise unremarkable. No right upper quadrant abdominal tenderness. Patient's labs were reviewed and interpreted by myself: CBC showed no leukocytosis, hemoglobin was stable. CMP was unremarkable. Thyroid studies were unremarkable. Lipase normal. At this time, given patient's normal labs I felt the patient was appropriate for discharge home. I did recommend that patient continue with other measures to help with sleep. I recommended that patient use no screens at night continue with melatonin and dark curtains. If patient continued to have poor sleep I recommend that patient follow-up with his primary care provider. Return precautions were discussed and patient was otherwise discharged home in stable condition. Critical Care Critical Care Time Critical Care Time: No
[2025-06-23 21:30] LABS: Hematocrit 44.2 % (42.0-52.0); Hemoglobin 15.0 g/dL (14.1-18.0); Immature Granulocytes % 0.2 %; Mean Corpuscular HGB Conc 33.9 g/dL (31.8-35.4); Mean Corpuscular Hemoglobin 28.9 pg (27.0-31.2); Mean Corpuscular Volume 85.2 fl (80-94); Nucleated Red Blood Cells % 0 %; Platelet Count 233 K/mm3 (142-424); Red Blood Count 5.19 M/mm3 (4.60-6.20); Red Cell Distribution Width-SD 38.0 fL; White Blood Count 6.6 K/mm3 (4.8-10.8)
[2025-06-23 21:34] LABS: Albumin Level 4.7 g/dl (3.5-5.0); Chloride 99 mmol/L (98-107); Potassium 3.9 mmoL/L (3.5-5.1); Sodium 140 mmol/L (136-145)
[2025-06-23 21:37] LABS: Alanine Aminotransferase 30 U/L (12-78); Albumin/Globulin Ratio 1.6 (1.1-1.8); Alkaline Phosphatase 62 U/L (38-126); Anion Gap 11.9 mEq/L (5-15); Aspartate Amino Transferase 33 U/L (17-59); Bilirubin,Total 1.4 mg/dl (0.2-1.3); Blood Urea Nitrogen 15 mg/dl (9-20); Calcium 9.3 mg/dl (8.4-10.2); Carbon Dioxide 33 mmol/L (22.0-30.0); Creatinine Clearance Estimated 176 mL/min (50-200); Creatinine,Serum 0.90 mg/dl (0.66-1.25); Estimated Glomerular Filt Rate 102 ml/min (>60); GFR (African American) 123 ML/MIN (>60); Globulin 3.0 g/dL (1.3-3.2); Glucose 101 mg/dl (74-100); Lipase 175 U/L (23-300); Total Protein,Serum 7.7 g/dl (6.3-8.2)
[2025-06-23 22:02] LABS: Free T4 (Free Thyroxine) 1.05 ng/dl (0.78-2.19)
[2025-06-23 22:08] LABS: Thyroid Stimulating Hormone 0.49 uIU/mL (0.465-4.68)
[2025-06-23 22:13] VITALS: BP 115/70; PULSE 78; RESP 16; TEMP 36.6; O2SAT 98
== END 2025-06-23 22:16 | disposition home or self-care (01) ==
PROVIDERS: Emergency Provider Student in an Organized Health Care Education/Training Program
DX: R10.13 Epigastric pain (principal); G47.9 Sleep disorder, unspecified
CPT/HCPCS: 80053; 83690; 84439; 84443; 85025; 93005; 99283; 99285

== ENCOUNTER 2025-07-12 21:34 | Emergency (ER) | payer OTHER, SELFPAY ==
--- NOTE | 2025-07-12 21:35 | ECG_ITS ---
APPROVED REPORT Exam: Resting ECG HR:68 bpm ECG Measurements Heart Rate 68 AXES VA 140 P 46 QRSd 100 QRS 13 QT 345 T 31 QTc 362 Conclusion Normal sinus rhythm without acute ST or T wave changes concerning for ischemia Electronically signed by : Katarina Kuo, 07/12/2025 22:49:29
[2025-07-12 21:37] VITALS: BP 128/81; PULSE 81; RESP 20; TEMP 36.8; O2SAT 98; BMI 43.7
--- OUTSIDE RECORDS SUMMARY | 2025-07-12 21:45 | XMS_ITS | Referral Summary ---
Author Organization [employer] ([place], [place], [place], [place]) Address [address] [place] [address] Care Team Providers Care Prosthodontist Name Role Phone Adeel Pinon APRN Primary Care Provider [phone] Social History Tobacco Use Types Packs/Day Years [...] Date Ruben rded Speak language other than Latvian at home Not on file 06/21/2024 Want [...] of Treatment Not on file Insurance [employer] [facility] Care Teams Prosthodontist Relationship Specialty Start Date End Date Adeel Pinon APRN [address] [place] [address] PCP - General Nurse Practitioner 07/16/24
--- OUTSIDE RECORDS SUMMARY | 2025-07-12 21:45 | XMS_ITS | Encounter Summary ---
Author Organization Healthcare Address [address] [place] [address] Care Team Providers Care Operation Shift Supervisor Name Role Phone Cipriano Mims MD Primary Care Provider [phone] Encounter Details Date Type Department Care Team (Late st Contact Info) Description 04/22/2021 Community [facility] [address] [place] [address] Emerson Joaquin, HEAD [employer] [address] [place] [address] Hypertrophy of male breast (Primary [...] breast documented in this encounter Care Teams Operation Shift Supervisor Relationship Specialty Start Date End Date Cipriano Mims MD [address] [place] [id number] PCP - General 02/06/21 documented as of this encounter
--- OUTSIDE RECORDS SUMMARY | 2025-07-12 21:45 | XMS_ITS | Clinical Summary ---
Author Organization [employer] ([place], [place], [place], [place]) Address [address] [place] [address] Care Team Providers Care Bacteriologist Fishery Name Role Phone Adeel Pinon APRN Primary Care Provider [phone] Social History Tobacco Use Types Packs/Day Years [...] Date Ruben rded Speak language other than Grenadian at home Not on file 06/21/2024 Want [...] age to complete this topic Insurance [employer]ETNA [facility] Care Teams Bacteriologist Fishery Relationship Specialty Start Date End Date Adeel Pinon APRN [address] [place] [id number] PCP - General Nurse Practitioner 07/16/24
--- OUTSIDE RECORDS SUMMARY | 2025-07-12 21:45 | XMS_ITS | Encounter Summary ---
Author Organization [employer] ([place], [place], [place], [place]) Address [address] [place] [address] Care Team Providers Care Recreation Manager Name Role Phone Adeel Pinon APRN Primary Care Provider [phone] Encounter Details Date Type Department Care Team (Late st Contact Info) Description 06/21/2024 Outside Orders [facility] Scheduling [address] [place] [address] Kelsey Nixon APRN [address] [place], [place] [id number] Social History Tobacco Use Types Packs/Day Years [...] Date Ruben rded Speak language other than Guyanese at home Not on file 06/21/2024 Want [...] on filedocumented in this encounter Care Teams Recreation Manager Relationship Specialty Start Date End Date Adeel Pinon APRN [address] [place] [address] PCP - General Nurse Practitioner 07/16/24 documented as of this encounter
--- OUTSIDE RECORDS SUMMARY | 2025-07-12 21:45 | XMS_ITS | Clinical Summary ---
Author Organization Healthcare Address [address] [place] [address] Care Team Providers Care Forest Patrolman Name Role Phone Cipriano Mims MD Primary Care Provider [phone] Family History Medical History Relation Name Comments [...] (2 - Td or Tdap) 02/14/2020 02/13/2010 [id number] Vaccine (2 - 2024- season) 2025 05/14/2021 [...] patient's age to complete this topic Insurance [facility] MEDICAID Care Teams Forest Patrolman Relationship Specialty Start Date End Date Cipriano Mims MD [address] [place] [address] PCP - General 02/06/21
--- NOTE | 2025-07-12 21:48 | HMH.EDGENADL ---
Discharge Plan Disposition Chief Complaint: Anxiety Referrals Follow up/Referrals: Provider,Referral, [Referring, Medical] - See instructions Print Language Print Language: Italian Discharge ED Provider: Katarina Kuo Adult HPI General Chief complaint: Anxiety Stated complaint: chest pain Time Seen by Provider: 07/12/25 21:42 Mode of Arrival: Ambulatory Source of Information: Patient Description of Symptoms (Recalled from ER Triage Doc. by RN): pt reports heart palpitations and chest pressure that began one hour ago. pt reports he has had similar episodes previously and was to schedule follow up with mental health but has not been to an appointment yet. pt also reports leg weakness today when walking doen the stairs his knee gave out a little History of Present Illness HPI narrative: Patient is a 25-year-old gentleman with a past medical history of mental health disorders including possible ADHD depression who presented to the emergency department with chest pain. States that he has a psychiatrist as well as a primary care provider. Patient saw his primary care provider on July 08 for anxiety patient was given no new medications at that time. Patient states that he has been on multiple medications in the past including atomoxetine, Adderall, bupropion. Patient states that he is actively not on any medications. Patient states that tonight he started having chest pressure that started around 8 PM. Patient states that his pain is in the center of his chest. States the pain is not radiating. States that his pain tonight felt different than his previous anxiety type symptoms. He denies any abdominal pain nausea vomiting or diarrhea. Patient states that he had an episode where his left leg gave out. Patient states that he is having a frontal headache that is mild in nature gradual in onset. Patient is not having any vision changes or other neurologic symptoms such as numbness or weakness. Related Data Allergies Allergy/AdvReac Type Severity Reaction Status Date / Time No Known Allergies Allergy Verified 07/08/25 13:52 [facility] Disclaimer: The information contained in this section may have been updated after the patient was seen, as this information can be updated by other users. Medical History Anxiety Allergic rhinitis TMJ (dislocation of temporomandibular joint) Eustachian tube dysfunction Tinnitus Ear congestion Otalgia, left ear Social History Smoking Status: Never smoker alcohol intake: never substance use type: denies use current occupational status: employed Travel in the last 8 weeks?: None household members: family housing: house number of children: 0 Have you lived/traveled outside US in past 30 days?: No Contact w/someone who lives/traveled outside US past 30 days?: No Exposure to someone with infectious disease in past 14 days?: No Do you have a fever (greater than 100.4 F or 38 C)?: No Have you tested positive for COVID-19?: No Exposed to someone with COVID-19 in past 14 days?: No Do you have a sore throat?: No Do you have a cough?: No Do you have any weakness?: No Do you have any diarrhea?: No Are you experiencing any unusual bleeding?: No Do you have any muscle aches/pain?: No Do you have any abdominal pain?: No Are you experiencing loss of taste or smell?: No Other Medical History Have you received the Flu Vaccine for this season: No Have you received the Pneumonia Vaccine: No ROS Obtained: Yes All systems reviewed & no additional complaints except as documented and Yes Systems reviewed as appropriate & no additional complaints except as documented Physical Exam General General appearance: alert and in no apparent distress Head Head exam: atraumatic, normocephalic and normal inspection Eye Eye exam: Present normal appearance, PERRL and EOMI; Absent scleral icterus ENT ENT exam: Present normal exam and normal external ear exam Neck Neck exam: Present normal inspection and full ROM Chest Chest inspection: Present normal inspection and symmetric chest wall rise Respiratory Respiratory exam: Present normal lung sounds bilaterally; Absent respiratory distress or wheezes Cardiovascular Cardiovascular exam: Present regular rate, normal rhythm, normal heart sounds and other (mild chest wall tenderness) Abdominal Exam Abdominal exam: Present soft and distention; Absent tenderness, guarding or rebound Extremities Exam Extremities exam: Present normal inspection and full ROM Back Exam Back exam: Present normal inspection and full ROM Neurological Exam Neurological exam: Present alert, oriented X3, CN II-XII intact and normal gait; Absent motor sensory deficit Psychiatric Psychiatric exam: Present normal affect, normal mood and other (tangential speech) Skin Skin exam: Present warm and dry Medical Decision Making Medical Records Medical records reviewed: Yes I reviewed the patient's medical records. Screening: Per USPSTF and CDC recommendations, given the prevalence of disease in our region, it is our hospital?s policy to screen for HIV and viral Hepatitis for all patients aged 18 and over and those with ongoing risk factors. Deng Inquiry Pt receiving controlled substance: No Vital Signs: 07/12/25 21:37 07/12/25 22:00 07/12/25 22:15 Temperature 98.3 F Temperature Source Oral Pulse Rate 62 63 Pulse Rate [Right] 81 Respiratory Rate 20 12 9 L Blood Pressure 147/122 H Blood Pressure [Right Arm] 128/81 Blood Pressure Mean [Right Arm] 96 02 Sat by Pulse Oximetry 98 96 96 Oxygen Delivery Method Room Air 07/12/25 23:00 Temperature Temperature Source Pulse Rate 63 Pulse Rate [Right] Respiratory Rate 12 Blood Pressure 142/84 H Blood Pressure [Right Arm] Blood Pressure Mean [Right Arm] 02 Sat by Pulse Oximetry 99 Oxygen Delivery Method Lab Data Lab results reviewed: Yes I reviewed the patient's lab results. Lab Results 07/12/25 21:41: WBC 6.7, RBC 5.17, Hgb 15.0, Hct 44.2, MCV 85.5, MCH 29.0, MCHC 33.9, RDW 12.4, Plt Count 243, MPV 8.5, Neut % (Auto) 51.9, Lymph % (Auto) 34.2, [place] % (Auto) 7.6, Eos % (Auto) 5.8, Baso % (Auto) 0.4, Neut # (Auto) 3.5, Lymph # (Auto) 2.3, [place] # (Auto) 0.5, Eos # (Auto) 0.4, Baso # (Auto) 0.0, D-Dimer 0.48, Sodium 138, Potassium 3.9, Chloride 102, Carbon Dioxide 29, Anion Gap 10.9, BUN 10, Creatinine 0.70, Estimated Creat Clear 113, Estimated GFR 136, Est GFR ( Amer) 165, Glucose 105 H, Calcium 8.5, Total Bilirubin 1.0, AST 34, ALT 34, Alkaline Phosphatase 68, Troponin I < 0.01, Total Protein 7.4, Albumin 4.4, Globulin 3.0, Albumin/Globulin Ratio 1.5, Lipase 165 07/12/25 21:41 07/12/25 21:41 Orders (Tests/Meds): ED MEDICATIONS Discontinued Medications Generic Name Dose Route Start Last Admin Trade Name Freq PRN Reason Stop Dose Admin Acetaminophen 1,000 mg 07/12/25 22:03 07/12/25 22:17 Acetaminophen 500mg Tab PO 07/12/25 22:04 1,000 mg ONCE ONE Administration Diazepam 2 mg 07/12/25 22:03 07/12/25 22:16 Diazepam 10mg/2ml Syringe IV 07/12/25 22:04 2 mg ONCE ONE Administration Ketorolac Tromethamine 30 mg 07/12/25 22:03 07/12/25 22:17 Ketorolac 30mg/Ml Vial IV 07/12/25 22:04 30 mg ONCE ONE Administration ORDERS Category Date Time Status CT head/brain wo con Stat Cat Scan 07/12/25 22:03 Completed CXR --portable [XR chest portable] Stat Exams 07/12/25 22:03 Completed CBC w/Auto Diff [Complete Blood Count Auto Diff] Stat Lab 07/12/25 21:41 Completed CMP [Comprehensive Metabolic Panel] Stat Lab 07/12/25 21:41 Completed D-Dimer Stat Lab 07/12/25 21:41 Completed Lipase Stat Lab 07/12/25 21:41 Completed Trop I [Troponin I] Stat Lab 07/12/25 21:41 Completed Troponin I Q3H Lab 07/13/25 01:15 Ordered Troponin I Q3H Lab 07/13/25 04:15 Ordered Medical Decision Narrative: Patient is a 25-year-old gentleman with a past medical history of depression, ADHD who presents to the emergency department with concern for chest pressure. On arrival, patient was hemodynamically stable with unremarkable vital signs. Differential includes but not limited to: ACS/MD, pneumothorax, pleural effusion, anxiety, costochondritis, intracranial pathology, tension headache, migraine, amongst others. Medications were ordered including Toradol Tylenol and Valium for symptom management. Labs were ordered as well as CT head and chest x-ray. Patient's labs were reviewed and interpreted by myself: CBC showed no leukocytosis, hemoglobin was stable. CMP was unremarkable. Initial troponin less than 0.01. CT head reviewed and interpreted by myself and showed no acute intracranial pathology. X-ray was reviewed and interpreted by myself and showed no acute focal consolidation but pneumothorax, pleural effusion or other acute cardiopulmonary process EKG was reviewed and interpreted by myself and showed normal sinus rhythm without acute ST or T wave changes concerning for ischemia Was signed out to the oncoming provider pending troponin and final disposition. Critical Care Critical Care Time Critical Care Time: No
[2025-07-12 22:00] VITALS: BP 147/122; PULSE 62; RESP 12; O2SAT 96
--- NOTE | 2025-07-12 22:03 | CT_ITS ---
PROCEDURE INFORMATION: Exam: CT Head Without Contrast Exam date and time: 07/12/2025 10:33 PM Age: 25 years old Clinical indication: Pain; Headache TECHNIQUE: Imaging protocol: Computed tomography of the head without contrast. Radiation optimization: All CT scans at this facility use at least one of these dose optimization techniques: automated exposure control; mA and/or kV adjustment per patient size (includes targeted exams where dose is matched to clinical indication); or iterative reconstruction. COMPARISON: MR HEAD/BRAIN WO/W CON 05/11/2021 9:11 AM FINDINGS: Brain: Normal. No hemorrhage. Unremarkable white matter. No mass effect. Cerebral ventricles: No ventriculomegaly. Paranasal sinuses: There are mucous retention cysts within both maxillary sinuses. Mastoid air cells: Visualized mastoid air cells are well aerated. Orbital cavities: The orbital contents are symmetric and normal. Bones: Unremarkable. No acute fracture. Soft tissues: Unremarkable. IMPRESSION: No acute intracranial abnormality.
--- NOTE | 2025-07-12 22:03 | XR_ITS ---
PROCEDURE INFORMATION: Exam: XR Chest Exam date and time: 07/12/2025 10:32 PM Age: 25 years old Clinical indication: Shortness of breath; Additional info: Chest pain/shortness of breath TECHNIQUE: Imaging protocol: Radiologic exam of the chest. Views: 1 view. COMPARISON: CT ABDOMEN PELVIS W CON 03/27/2025 5:16 PM FINDINGS: Lungs: Unremarkable. No consolidation. Pleural spaces: Unremarkable. No pleural effusion. No pneumothorax. Heart/Mediastinum: Unremarkable. No cardiomegaly. Vasculature: Unremarkable. Bones/joints: Unremarkable. IMPRESSION: No acute findings.
[2025-07-12 22:11] LABS: Hematocrit 44.2 % (42.0-52.0); Hemoglobin 15.0 g/dL (14.1-18.0); Immature Granulocytes % 0.1 %; Mean Corpuscular HGB Conc 33.9 g/dL (31.8-35.4); Mean Corpuscular Hemoglobin 29.0 pg (27.0-31.2); Mean Corpuscular Volume 85.5 fl (80-94); Nucleated Red Blood Cells % 0 %; Platelet Count 243 K/mm3 (142-424); Red Blood Count 5.17 M/mm3 (4.60-6.20); Red Cell Distribution Width-SD 38.6 fL; White Blood Count 6.7 K/mm3 (4.8-10.8)
[2025-07-12 22:15] VITALS: PULSE 63; RESP 9; O2SAT 96
[2025-07-12] MEDS: diazePAM 10MG/2ML SYRINGE 2 MG IV (22:16)
[2025-07-12] MEDS: ACETAMINOPHEN 500MG TAB 1000 MG PO (22:17)
[2025-07-12] MEDS: KETOROLAC 30MG/ML VIAL 30 MG IV (22:17)
[2025-07-12 22:54] LABS: Albumin Level 4.4 g/dl (3.5-5.0); Chloride 102 mmol/L (98-107)
[2025-07-12 22:55] LABS: Potassium 3.9 mmoL/L (3.5-5.1); Sodium 138 mmol/L (136-145)
[2025-07-12 22:57] LABS: Alanine Aminotransferase 34 U/L (12-78); Anion Gap 10.9 mEq/L (5-15); Aspartate Amino Transferase 34 U/L (17-59); Blood Urea Nitrogen 10 mg/dl (9-20); Carbon Dioxide 29 mmol/L (22.0-30.0); Creatinine Clearance Estimated 113 mL/min (50-200); Creatinine,Serum 0.70 mg/dl (0.66-1.25); Estimated Glomerular Filt Rate 136 ml/min (>60); GFR (African American) 165 ML/MIN (>60); Lipase 165 U/L (23-300)
[2025-07-12 22:58] LABS: Albumin/Globulin Ratio 1.5 (1.1-1.8); Alkaline Phosphatase 68 U/L (38-126); Bilirubin,Total 1.0 mg/dl (0.2-1.3); Calcium 8.5 mg/dl (8.4-10.2); Globulin 3.0 g/dL (1.3-3.2); Glucose 105 mg/dl (74-100); Total Protein,Serum 7.4 g/dl (6.3-8.2)
[2025-07-12 23:00] VITALS: BP 142/84; PULSE 63; RESP 12; O2SAT 99
[2025-07-12 23:02] LABS: D-Dimer 0.48 ug/mL (0.0-0.5)
[2025-07-12 23:09] LABS: Troponin I < 0.01 ng/ml (0.00-0.034)
[2025-07-12 23:30] VITALS: BP 128/77; PULSE 63; RESP 13; O2SAT 98
[2025-07-13] VITALS: BP 132/90; PULSE 66; RESP 12; O2SAT 99
[2025-07-13 00:30] VITALS: BP 130/75; PULSE 66; RESP 10; O2SAT 96
[2025-07-13 01:00] VITALS: BP 124/74; PULSE 65; RESP 14; O2SAT 97
[2025-07-13 01:30] VITALS: BP 121/76; PULSE 67; RESP 12; O2SAT 95
[2025-07-13 01:59] LABS: Troponin I < 0.01 ng/ml (0.00-0.034)
[2025-07-13 02:00] VITALS: BP 126/79; PULSE 61; RESP 13; O2SAT 96
[2025-07-13 02:01] VITALS: BP 126/79; PULSE 60; RESP 13; TEMP 36.8; O2SAT 96
== END 2025-07-13 02:11 | disposition home or self-care (01) ==
PROVIDERS: Student in an Organized Health Care Education/Training Program; Emergency Provider Emergency Medicine; PCP Family Medicine
DX: R07.89 Other chest pain (principal); F41.9 Anxiety disorder, unspecified
CPT/HCPCS: 70450; 71045; 80053; 83690; 84484; 85025; 85378; 93005; 96374; 96375; 99285; J1885; J3360

== ENCOUNTER 2025-08-12 10:05 | Outpatient (CLI) | payer OTHER, SELFPAY ==
--- NOTE | 2025-08-29 07:57 | PC.NURSE ---
RESP CARE NOTE: Patient only wore the heart monitor for 1 hour and 45 mins, during his 30 day period. There was not enough recording to warrant the charge for the reading or monitor use, so the charge was cancelled.
== END 2025-08-12 23:59 | disposition home or self-care (01) ==
PROVIDERS: PCP Family Medicine; Visit Provider Nurse Practitioner Family
DX: R42 Dizziness and giddiness (principal)
CPT/HCPCS: 93270; 93272

== ENCOUNTER 2025-08-28 10:50 | Outpatient (CLI) | payer OTHER, SELFPAY ==
--- OUTSIDE RECORDS SUMMARY | 2025-08-28 10:52 | XMS_ITS | Referral Summary ---
Author Organization [employer] ([place], [place], [place], [place], [place]) Address [address] [place] [address] Care Team Providers Care Biophysics Professor Name Role Phone Adeel Pinon APRN Primary Care Provider [phone] Social History Tobacco Use Types Packs/Day Years [...] Date Ruben rded Speak language other than Italian at home Not on file 06/21/2024 Want [...] Not on file Insurance [employer] [facility] Care Teams Biophysics Professor Relationship Specialty Start Date End Date Adeel Pinon APRN [address] [place] [address] PCP - General Nurse Practitioner 07/16/24
--- OUTSIDE RECORDS SUMMARY | 2025-08-28 10:52 | XMS_ITS | Encounter Summary ---
Author Organization Healthcare Address [address] [place] [address] Care Team Providers Care Opera Singer Name Role Phone Cipriano Mims MD Primary Care Provider [phone] Encounter Details Date Type Department Care Team (Late st Contact Info) Description 04/22/2021 Community [facility] [address] [place] [address] Emerson Joaquin, HEAD PAPER TESTER [address] [place] [address] Hypertrophy of male breast (Primary [...] breast documented in this encounter Care Teams Opera Singer Relationship Specialty Start Date End Date Cipriano Mims MD [address] [place] [id number] PCP - General 02/06/21 documented as of this encounter
--- OUTSIDE RECORDS SUMMARY | 2025-08-28 10:52 | XMS_ITS | Clinical Summary ---
Author Organization Healthcare Address [address] [place] [address] Care Team Providers Care Level Vial Inspector Name Role Phone Cipriano Mims MD Primary [...] (2 - Td or Tdap) 02/14/2020 02/13/2010 [id number] Vaccine (2 - 2024- season) 2025 05/14/2021 [...] patient's age to complete this topic Insurance [facility] MEDICAID Care Teams Level Vial Inspector Relationship Specialty Start Date End Date Cipriano Mims MD [address] [place] [address] PCP - General 02/06/21
--- OUTSIDE RECORDS SUMMARY | 2025-08-28 10:52 | XMS_ITS | Clinical Summary ---
Author Organization [employer] ([place], [place], [place], [place], [place]) Address [address] [place] [address] Care Team Providers Care Chemical Treatment Plant Technician Name Role Phone Adeel Pinon APRN Primary Care Provider [phone] Social History Tobacco Use Types Packs/Day Years [...] Date Ruben rded Speak language other than Indian at home Not on file 06/21/2024 Want [...] Health Maintenance Due Date Last Done Comments Depression Screening (12+) 2011 Tobacco Cessation Counseling and Screening (12+) 2011 HIV Screening 2014 Hepatitis C Screening 2017 DTAP/TDAP/TD VACCINES (2 - T d or Tdap) 02/14/2020 02/13/2010 COVID-19 VACCINE (3 2024-2 6 season) 2025 06/12/2021, 05/14/2021 Influenza Vaccine (#1) 2025 Pneumococcal Vaccine: 0-49 Years Aged Out No longer eligible b ased on patient's age to complete this topic Insurance AETNA [facility] Care Teams Chemical Treatment Plant Technician Relationship Specialty Start Date End Date Adeel Pinon APRN [address] [place] [address] PCP - General Nurse Practitioner 07/16/24
--- NOTE | 2025-08-28 11:15 | CA_ITS ---
APPROVED REPORT EXAM: Comprehensive 2D, Doppler, and color-flow Echocardiogram Aircraft Seat Upholsterer: Nichol Cantu RT(R) Ht: 5 ft 10 in Wt: 230lbs BSA: 2.21 BP: 122/85 mmHg Indications: chest pain, palpitations 2D Dimensions EF AP4 45.50 % GL Strain -16.7 % M-Mode Dimensions RVDd 2.01 cm (0.9-2.6) LA Diam 2.29 cm (1.9-4.0) LVDd 4.44 cm (3.5-5.7) LVDs 3.11 cm (3.5-5.7) IVSd 1.02 cm (0.6-1.1) PWd 1.02 cm (0.6-1.1) EF (Teich) 57.40% FS 30.00% EDV (Teich) 89.60 mL ESV (Teich) 38.20 mL LV Diastology E Decel Time 320 (160-240 msec) E/A Ratio 1.4 Mitral Valve MV E Max Gato. 76.0 (40-130 cm/s) MV A Velocity 53.0 (40-130 cm/s) E/A Ratio 1.44 MV PHT 94.0 ms Left Ventricle The left ventricle is normal size. Left ventricular systolic function is normal. The left ventricular ejection fraction is within the normal range. There is normal left ventricular wall thickness. There is normal LV segmental wall motion. The left ventricular diastolic function is normal. LVEF is 55% Right Ventricle The right ventricle is normal size. The right ventricular systolic function is normal. Atria The left atrium size is normal. The right atrium size is normal. There is no color Doppler evidence of interatrial shunt. Aortic Valve The aortic valve opens well. There is no hemodynamically significant aortic valvular stenosis. No aortic regurgitation is present. Mitral Valve The mitral valve is normal in structure. No evidence of mitral valve stenosis. Trace mitral regurgitation is present. Tricuspid Valve The tricuspid valve leaflets are thin and pliable. Trace tricuspid regurgitation. There is insufficient TR jet to estimate RVSP. Pulmonic Valve The pulmonary valve is grossly normal in structure. Trace pulmonic valve regurgitation is present. Great Vessels The aortic root is normal in size. IVC is normal in size and collapses >50% with inspiration. Pericardium There is no pericardial effusion. Other Information Study Quality: Fair Conclusion Normal biventricular systolic function. No significant valvular stenosis or regurgitation. Electronically signed by : Tami Young MD 09/03/2025 14:25:09
[2025-08-28 11:43] VITALS: BMI 32.3
[2025-08-28 11:49] VITALS: BP 123/70; PULSE 63; RESP 18; O2SAT 98
[2025-08-28 11:56] LABS: Chloride 100 mmol/L (98-107); Potassium 3.8 mmoL/L (3.5-5.1); Sodium 140 mmol/L (136-145)
[2025-08-28 11:59] LABS: Anion Gap 13.8 mEq/L (5-15); Blood Urea Nitrogen 11 mg/dl (9-20); Calcium 9.3 mg/dl (8.4-10.2); Carbon Dioxide 30 mmol/L (22.0-30.0); Creatinine Clearance Estimated 180 mL/min (50-200); Creatinine,Serum 0.90 mg/dl (0.66-1.25); Estimated Glomerular Filt Rate 102 ml/min (>60); GFR (African American) 123 ML/MIN (>60); Glucose 93 mg/dl (74-100)
[2025-08-28] MEDS: 0.9 % SODIUM CHLORIDE 50 ML VIAL 40 ML IV (12:49)
[2025-08-28] MEDS: IOPAMIDOL-370 (76%);100ML BOTTLE 85 ML IV (12:50)
[2025-08-28] MEDS: SODIUM CHLORIDE 0.9% 10ML SYR (RAD ONLY) 10 ML IV (12:50)
--- NOTE | 2025-08-28 13:00 | CT_ITS ---
APPROVED REPORT Admissions Specialist: CLINICAL INDICATION Chest Pain TECHNIQUE Image Acquisition: A 128 slice MDCT scanner ([employer] Enthusea View) was used for data acquisition. A noncontrast coronary calcium scan was performed. A CT attenuation threshold of 130 Hounsfield units (HU) was used for the detection of calcium in contiguous voxels of 1 sq mm in area to be counted as individual lesions. Bolus tracking in the ascending aorta with a threshold of 180 HU was performed. Immediately afterwards, ECG synchronized cardiac CT was then performed from the cardiac base to apex using retrospective gating with ECG tube current modulation. A total of 85 mL of Isovue 370 mg/mL contrast medium was administered at 5 mL/sec followed by a saline flush using a biphasic injection protocol. A tube voltage of 120 KVp was used. The patient received no medications prior to the cardiac CT. Image Reconstruction Transaxial images were reconstructed at 0.67 mm slide thickness. Data was reviewed interactively on an advanced workstation capable of 2 and 3-dimensional displays in all conventional reconstruction formats, including multiplanar reformations, maximum intensity projections, curved multiplanar reformations, and volume rendered reconstructions. When applicable, selected routine images describing the relevant coronary anatomy and pathology were saved and sent to PACS. Complications None Technical Quality Overall image quality was good. Coronary artery opacification was adequate. Total DLP (Dose-Length Product) is 1922.7 mGy-cm. The reported value represents the total of one or more individual components during the CT acquisition of this date and at this time, and as such, the same value may appear in more than one CT report depending on the interpreting/reporting physicians. COMPARISON None FINDINGS CT Coronary Calcium Scoring LMA (Left Main Artery) = 0 LAD (Left Anterior Descending) = 0 LCX (Left Coronary Circumflex) = 0 RCA (Right Coronary Artery) = 0 Total Calcium Score = 0 using the AJ-130 method. The interpretation of the calcium heart score is based on the following continuum*: 0 = no calcified plaque detected (risk of coronary artery disease is very low ??? less than 5%) 1-10 = calcium detected in extremely minimal levels (risk of coronary diseases is still low ??? less than 10%) 11-100 = mild levels of plaque detected with certainty (mild or minimal narrowing of heart arteries is likely) 101-400 = definite,at least moderate levels of plaque detected (relatively high risk of a heart attack within 3-5 years) >401-999 = extensive levels of plaque detected (high risk of heart attack, high levels of vascular disease are present, high likelihood of at least one significant coronary narrowing) *The calcium heart score quantifies the burden of coronary calcification/plaque in the coronary arteries. The calcium heart score is not able to evaluate the presence or burden of non-calcified (i.e. soft) plaque. There is no identifiable calcification in the aortic valve, mitral annulus or mitral valve, pericardium, or myocardium. Coronary CT Angiography The coronary arterial system is right dominant. Quantitative Stenosis Grading: Left Main (LM): The left main originates normally from the left sinus of Valsalva. The LM bifurcates into the left anterior descending artery and left circumflex artery. The LM is patent with no evidence of atherosclerosis. Left Anterior Descending (LAD) and Diagonal Branches: The LAD gives off 3 diagonal branch(es). The LAD and its branches are patent with no evidence of atherosclerosis. There is no evidence of LAD-myocardial bridge. Left Circumflex (LCX) and Obtuse Marginals (OM): The LCX gives off 1 Obtuse Marginal (OM) branch(es). The LCX and its branches are patent with no evidence of atherosclerosis. Right Coronary Artery (RCA): The RCA originates normally from the right sinus of Valsalva. The RCA gives off a posterior descending artery (PDA) and posterolateral (PL) branches. The RCA and its branches are patent with no evidence of atherosclerosis. Non-Coronary Cardiac Findings: Analysis of the left ventricular (LV) structure and function was performed after 3-D reconstruction of the LV from axial images, with user-corrected automatic contouring for assessment of LV volumes and user-defined reconstruction from oblique planes for measurement of 3-D cardiac structure and function. -The left ventricle systolic function is normal. -There is no left atrial appendage filling defect. Two right pulmonary veins and two left pulmonary veins drain normally into the left atrium. -No pericardial thickening or calcification. -Central and branch pulmonary arteries in the [id number] are unremarkable. -Thoracic aorta within the visualized thoracic aortic-branches in the [id number] is unremarkable. Extracardiac Structures No significant extra-cardiac findings. Note, however, that this study is focused on the cardiac findings. IMPRESSION -Absence of coronary calcification with an Agatston score = 0 using the AJ-130 method. -No evidence of significant flow-limiting atherosclerosis of the coronary arteries. -No evidence of coronary anomalies or myocardial bridging. -CAD-RADS 0. Management recommendations per ACC/AHA guidelines*, as clinically appropriate. *Recommendations: CAD RADS 0: Reassurance. Consider non-atherosclerotic causes of chest pain. CAD RADS 1: Consider non-atherosclerotic causes of chest pain. Consider preventive therapy and risk factor modification. CAD RADS 2: Consider non-atherosclerotic causes of chest pain. Consider preventive therapy and risk factor modification, particularly for patients with nonobstructive plaque in multiple segments. CAD RADS 3: Consider further functional testing. Consider symptom-guided anti-ischemic and preventive pharmacotherapy as well as risk factor modification per published guideline statements. CAD RADS 4A: Consider further functional testing or invasive coronary angiography with revascularization per published guideline statements. Consider symptom-guided anti-ischemic and preventive pharmacotherapy as well as risk factor modification per published guideline statements. CAD RADS 4B: Invasive coronary angiography recommended with revascularization per published guideline statements. Consider symptom-guided anti-ischemic and preventive pharmacotherapy as well as risk factor modification per published guideline statements. CAD RADS 5: Consider invasive angiography and/or viability assessment with revascularization per published guideline statements. Consider symptom-guided anti-ischemic and preventive pharmacotherapy as well as risk factor modification per published guideline statements. CRITICAL RESULT None COMMUNICATION Per this written report The coronary and cardiac findings of this CCTA were reviewed, reported, and signed by Fili Young MD (Curtain Drier) Conclusion Electronically signed by : Tami Young MD 09/03/2025 13:49:01
== END 2025-08-28 13:00 | disposition home or self-care (01) ==
PROVIDERS: PCP Family Medicine; Visit Provider Nurse Practitioner Family
DX: R07.9 Chest pain, unspecified (principal); R00.2 Palpitations; R42 Dizziness and giddiness; R53.83 Other fatigue; R41.0 Disorientation, unspecified
CPT/HCPCS: 75574; 80048; 93306; Q9967